=== PATIENT | male | born 1950 | race Caucasian/White ===

== ENCOUNTER 2019-12-28 10:17 | Outpatient (CLI) | payer MEDICARE, SELFPAY ==
--- NOTE | 2019-12-28 11:30 | NEURO_ITS ---
Patient Number: [id number] Impression: # Complains of generalized aches and numbness. Patient on peritoneal dialysis at home. 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 # Subtle early left Carpal Tunnel Syndrome. # Ulnar neuropathy around the elbows. # Normal needle/EMG exam. Nerve Conduction Studies Anti Sensory Summary Table Stim Site NR Peak (ms) P-T Amp (?V) Site1 Site2 Delta-P (ms) Dist (cm) Rhys (m/s) Left Median Anti Sensory (2-3nd Digit) Wrist 4.4 18.9 Wrist 2-3nd Digit 4.4 14.0 32 Wrist 4.4 27.0 Wrist 2-3nd Digit 4.4 14.0 32 Right Median Anti Sensory (2-3nd Digit) Wrist 4.3 7.8 Wrist 2-3nd Digit 4.3 14.0 33 Wrist 4.2 11.9 Wrist 2-3nd Digit 4.3 14.0 33 Left Radial Anti Sensory (Base 1st Digit) Wrist 2.5 5.6 Wrist Base 1st Digit 2.5 0.0 Right Radial Anti Sensory (Base 1st Digit) Wrist 3.3 2.8 Wrist Base 1st Digit 3.3 0.0 Left Ulnar Anti Sensory (5th Digit) Wrist 3.5 26.8 Wrist 5th Digit 3.5 14.0 40 Right Ulnar Anti Sensory (5th Digit) Wrist 3.7 17.1 Wrist 5th Digit 3.7 14.0 38 Motor Summary Table Stim Site NR Onset (ms) O-P Amp (mV) Site1 Site2 Delta-0 (ms) Dist (cm) Rhys (m/s) Left Median Motor (Abd Poll Brev) Wrist 4.7 1.5 Elbow Wrist 5.9 30.0 51 Elbow 10.6 1.1 Right Median Motor (Abd Poll Brev) Wrist 4.6 3.4 Elbow Wrist 6.8 31.0 46 Elbow 11.4 1.7 Left Ulnar Motor (Abd Dig Minimi) Wrist 3.6 4.8 A Elbow Wrist 7.1 31.0 44 A Elbow 10.7 3.6 B Elbow Wrist 4.7 24.0 51 B Elbow 8.3 4.0 Right Ulnar Motor (Abd Dig Minimi) Wrist 3.7 5.5 A Elbow Wrist 6.5 30.0 46 A Elbow 10.2 4.3 B Elbow Wrist 5.4 23.0 43 B Elbow 9.1 3.8 F Wave Studies NR F-Lat (ms) L-R F-Lat (ms) Left Median (Mrkrs) (Abd Poll Brev) 28.58 1.05 Right Median (Mrkrs) (Abd Poll Brev) 29.63 1.05 Left Ulnar (Mrkrs) (Abd Dig Min) 30.20 0.36 Right Ulnar (Mrkrs) (Abd Dig Min) 29.84 0.36 EMG Side Muscle Nerve Root Ins Act Fibs Amp Dur Recrt Comment Right 1stDorInt Ulnar C8-T1 Nml Nml Nml Nml Nml Right Ext Indicis Radial (Post Int) C7-8 Nml Nml Nml Nml Nml Right Ext Digitorum Radial (Post Int) C7-8 Nml Nml Nml Nml Nml Right BrachioRad Radial C5-6 Nml Nml Nml Nml Nml Right PronatorTeres Median C6-7 Nml Nml Nml Nml Nml Right Abd Poll Brev Median C8-T1 Nml Nml Nml Nml Nml Left 1stDorInt Ulnar C8-T1 Nml Nml Nml Nml Nml Left Ext Indicis Radial (Post Int) C7-8 Nml Nml Nml Nml Nml Left Ext Digitorum Radial (Post Int) C7-8 Nml Nml Nml Nml Nml Left BrachioRad Radial C5-6 Nml Nml Nml Nml Nml Left PronatorTeres Median C6-7 Nml Nml Nml Nml Nml Left Abd Poll Brev Median C8-T1 Nml Nml Nml Nml Nml Right ABD Dig Min Ulnar C8-T1 Nml Nml Nml Nml Nml Left ABD Dig Min Ulnar C8-T1 Nml Nml Nml Nml Nml MTDD
== END 2019-12-28 10:18 | disposition home or self-care (01) ==
PROVIDERS: PCP Internal Medicine; Visit Provider Internal Medicine
DX: G56.00 Carpal tunnel syndrome, unspecified upper limb (principal); G56.02 Carpal tunnel syndrome, left upper limb; G62.9 Polyneuropathy, unspecified; G56.23 Lesion of ulnar nerve, bilateral upper limbs
CPT/HCPCS: 95886; 95911

== ENCOUNTER 2020-08-17 15:29 | Outpatient (CLI) | payer MEDICARE, SELFPAY ==
[2020-08-17 16:03] LABS: Anion Gap 6 mmol/L (8-16); Blood Urea Nitrogen 40 mg/dL (9-20); Calcium 9.8 mg/dL (8.4-10.2); Carbon Dioxide 33 mmol/L (22-30); Chloride 100 mmol/L (98-107); Estimated Glomerular Filt Rate 9; Glucose 124 mg/dL (75-110); Potassium 3.5 mmol/L (3.4-5.0); Sodium 139 mmol/L (137-145)
[2020-08-17 16:34] LABS: Prostate Specific Antigen 1.5 ng/mL (< OR = 4.0)
[2020-08-17 18:00] LABS: Free T4 Free Thyroxine 0.79 ng/mL (0.78-2.19)
== END 2020-08-17 15:30 | disposition home or self-care (01) ==
LOC: ANHLAB 15:31
PROVIDERS: PCP Internal Medicine; Visit Provider Internal Medicine
DX: R79.89 Other specified abnormal findings of blood chemistry (principal); Z79.899 Other long term (current) drug therapy; I10 Essential (primary) hypertension; Z12.5 Encounter for screening for malignant neoplasm of prostate
CPT/HCPCS: 36415; 80048; 83090; 84153; 84439; 84443; G0103

== ENCOUNTER 2020-09-28 16:14 | Outpatient (CLI) | payer MEDICARE, SELFPAY ==
--- NOTE | ~2020-09-28 | XR_ITS ---
XR wrist LT min 3V DATE: 09/28/2020 16:42 INDICATION: Bilateral wrist pain TECHNIQUE: 4 views COMPARISON: None FINDINGS: There is prominent arterial calcification at the forearm and wrist. Moderate osteopenia. No recent fracture or dislocation. No periosteal reaction or bone destruction. No chondrocalcinosis o r erosive change is evident. IMPRESSION: Moderate osteopenia Arterial calcifications Reviewed, dictated and finalized at location B. 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
--- NOTE | ~2020-09-28 | XR_ITS ---
EXAMINATION: XR wrist RT min 3V INDICATION: Osteoarthritis TECHNIQUE: Four views of the right wrist are obtained. COMPARISON: None available FINDINGS: There is advanced osteoarthritis at the radiocarpal joint, triscaphe joint, and the first c arpometacarpal joint. There is widening of the scapholunate interval with proximal migration of the c apitate. No fracture is identified. Calcified atherosclerosis is noted. There appears to be some rota ry subluxation of the scaphoid. IMPRESSION: 1. 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 Reviewed, dictated and finalized at location A. 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
== END 2020-09-28 16:15 | disposition home or self-care (01) ==
PROVIDERS: PCP Internal Medicine; Visit Provider Plastic Surgery
DX: M19.031 Primary osteoarthritis, right wrist (principal); M19.032 Primary osteoarthritis, left wrist
CPT/HCPCS: 73110

== ENCOUNTER 2020-10-25 13:02 | Outpatient (CLI) | payer OTHER, SELFPAY ==
[2020-10-29 10:51] LABS: Kit Draw Collected
== END 2020-10-25 13:03 | disposition home or self-care (01) ==
PROVIDERS: PCP Internal Medicine; Visit Provider Transplant Surgery
DX: N18.6 End stage renal disease (principal)
CPT/HCPCS: 36415

== ENCOUNTER 2021-03-11 13:23 | Outpatient (CLI) | payer MEDICARE, SELFPAY ==
[2021-03-11 13:58] LABS: Basophils Absolute Auto 0.1 K/mm3 (0.0-0.1); Eosinophils Absolute Auto 0.2 K/mm3 (0-0.3); Eosinophils Percent Auto 3.2 % (0-4.4); Hematocrit 36.2 % (42.0-52.0); Hemoglobin 11.8 g/dL (14.0-18.0); Immature Granulocyte Absolute 0.03 K/mm3 (0.00-0.031); Immature Granulocyte Percent A 0.4 % (0-0.5); Lymphocytes Absolute Auto 1.25 K/mm3 (0.9-3.2); Lymphocytes Percent Auto 18.1 % (18.3-44.2); Mean Corpuscular HGB Conc 32.6 g/dl (32-36); Mean Corpuscular Hemoglobin 33.7 pg (26-34); Mean Corpuscular Volume 103.4 fl (80-100); Mean Platelet Volume 9.6 fl (7.4-10.4); Monocytes Absolute Auto 0.5 K/mm3 (0.1-0.6); Neutrophils Absolute Auto 4.8 K/mm3 (1.3-6.7); Neutrophils Percent Auto 70.3 % (45.5-73.1); Platelet Count Result 263 k/mm3 (150-375); Red Cell Distribution Width 13.5 % (11.5-14.5); White Blood Count 6.9 K/mm3 (4.5-10.0)
[2021-03-11 15:33] LABS: Alanine Aminotransferase 18 U/L (4-50); Albumin Level 3.8 g/dL (3.5-5.1); Alkaline Phosphatase 104 U/L (38-126); Anion Gap 8 mmol/L (8-16); Aspartate Amino Transferase 23 U/L (17-59); Bilirubin,Total 0.5 mg/dL (0.2-1.3); Blood Urea Nitrogen 35 mg/dL (9-20); Calcium 9.8 mg/dL (8.4-10.2); Carbon Dioxide 30 mmol/L (22-30); Chloride 100 mmol/L (98-107); Cholesterol 196 mg/dL (0-200); Estimated Glomerular Filt Rate 8; Glucose 103 mg/dL (65-110); HDL Direct 53 mg/dL; Sodium 138 mmol/L (137-145); Triglycerides 107 mg/dL (<150)
[2021-03-11 15:34] LABS: LDL Cholesterol Direct 91 mg/dL
[2021-03-11 15:39] LABS: Potassium 4.4 mmol/L (3.4-5.0)
[2021-03-11 15:59] LABS: Free T4 Free Thyroxine 0.74 ng/mL (0.78-2.19)
== END 2021-03-11 13:24 | disposition home or self-care (01) ==
PROVIDERS: PCP Internal Medicine; Visit Provider Internal Medicine
DX: E78.2 Mixed hyperlipidemia (principal); Z79.899 Other long term (current) drug therapy; I10 Essential (primary) hypertension
CPT/HCPCS: 36415; 80053; 80061; 83036; 84439; 84443; 85025

== ENCOUNTER 2021-04-11 09:20 | Outpatient (CLI) | payer MEDICARE, SELFPAY ==
[2021-04-11 09:45] LABS: INR 1.8; Prothrombin Time 20.2 Seconds (11.1-14.7)
== END 2021-04-11 09:21 | disposition home or self-care (01) ==
LOC: ANHLAB 09:22
PROVIDERS: PCP Internal Medicine; Visit Provider Internal Medicine
DX: I48.91 Unspecified atrial fibrillation (principal)
CPT/HCPCS: 36415; 85610

== ENCOUNTER 2021-04-16 08:40 | Emergency (ER) | payer MEDICARE, SELFPAY ==
[2021-04-16] VITALS (13 sets, daily range): BP systolic 80–145; BP diastolic 36–96; PULSE 69–92; RESP 15–19; TEMP 36.2–36.6; O2SAT 95–100
--- NOTE | ~2021-04-16 | CT_ITS ---
EXAMINATION: CT abdomen pelvis wo con EXAM DATE: 04/16/2021 10:04 INDICATION: Abdominal pain. Skin cancer. TECHNIQUE: Spiral CT of the abdomen and pelvis was performed without contrast. Axial, coronal and s agittal images of the abdomen and pelvis were reviewed. The dose-length product (DLP) for this exami nation was 1149.51 mGy-cm. The exposure was tailored according to patient size (auto mA exposure con trol), and iterative reconstruction (ASIR) was used as additional dose reduction technique. There is no prior study for comparison. FINDINGS: There is peritoneal dialysis catheter, likely accounting for the free intraperitoneal fluid and gas. There is significant bilateral renal atrophy. There is hyperdense region surrounding the left kidney consistent with a large subcapsular hematoma. There is extracapsular extension of this into the retro peritoneum, and extending into the pelvis. There is a focal region which could be a hemorrhagic mass measuring about 6 cm. There are other hyperdense right renal lesions visualized statistically most li gerry hemorrhagic cysts, but indeterminate. The liver, spleen, adrenal glands and pancreas are unremarkable. Gallbladder is unremarkable. No bi liary obstruction. Mild prostatomegaly. The bladder is unremarkable. There is no retroperitoneal or pelvic lymphadenopathy. There is moderate scattered arteriosclerotic disease. There are no findings to suggest appendicitis. Mild sigmoid diverticulosis. The stomach and small bow el are unremarkable. There is expected amount of colonic stool. The heart is normal in size. The re are no pericardial or pleural effusions. The lung bases are unremarkable. There are no osteoblas tic or osteolytic lesions identified. There is a right hip arthroplasty. Right nipple was imaged, h as soft tissue density deep to it probably mild gynecomastia. IMPRESSION: 1. Large left subcapsular hematoma, could be from hemorrhagic left renal mass. Extracapsular extensi on. Clinical correlation for evidence of page kidney. 2. Indeterminate right renal lesions statistically most likely hemorrhagic cysts. 3. Free intraperitoneal fluid and gas likely from dialysis. 4. Mild sigmoid diverticulosis. 5. Mild prostatomegaly. Reviewed, dictated and finalized at location A. IMPRESSION: 1. Large left subcapsular hematoma, could be from hemorrhagic left renal mass. Extracapsular extension. Clinical correlation for evidence of page kidney. 2. Indeterminate right renal lesions statistically most likely hemorrhagic cys ts. 3. Free intraperitoneal fluid and gas likely from dialysis. 4. Mild sigmoid diverticulosis. 5. Mild prostatomegaly.
[2021-04-16 09:21] LABS: Basophils Absolute Auto 0.1 K/mm3 (0.0-0.1); Basophils Percent Auto 0.6 % (0.2-1.2); Eosinophils Absolute Auto 0.3 K/mm3 (0-0.3); Eosinophils Percent Auto 1.3 % (0-4.4); Hematocrit 29.8 % (42.0-52.0); Hemoglobin 9.7 g/dL (14.0-18.0); Immature Granulocyte Absolute 0.17 K/mm3 (0.00-0.031); Immature Granulocyte Percent A 0.9 % (0-0.5); Lymphocytes Absolute Auto 1.72 K/mm3 (0.9-3.2); Lymphocytes Percent Auto 9.2 % (18.3-44.2); Mean Corpuscular HGB Conc 32.6 g/dl (32-36); Mean Corpuscular Hemoglobin 33.6 pg (26-34); Mean Corpuscular Volume 103.1 fl (80-100); Mean Platelet Volume 9.5 fl (7.4-10.4); Monocytes Absolute Auto 0.8 K/mm3 (0.1-0.6); Monocytes Percent Auto 4.3 % (2.6-8.5); Neutrophils Absolute Auto 15.7 K/mm3 (1.3-6.7); Neutrophils Percent Auto 83.7 % (45.5-73.1); Platelet Count Result 333 k/mm3 (150-375); Red Blood Count 2.89 M/mm3 (4.6-6.20); Red Cell Distribution Width 14.6 % (11.5-14.5); White Blood Count 18.7 K/mm3 (4.5-10.0)
--- NOTE | 2021-04-16 09:30 | PC.NURSE ---
patient asked for urine sample at this time, patient unable to provide urine and declines straight cath.
[2021-04-16] MEDS: MORPHINE SULFATE (*CRX) 2 MG/ML INJ IV PUSH (09:33)
--- NOTE | 2021-04-16 09:42 | ED.GENADULT ---
HPI - General Adult General Chief complaint: Abdominal Pain Stated complaint: L SIDED ABD PAIN Time Seen by Provider: 04/16/21 09:05 Source: patient Mode of arrival: ambulatory Limitations: no limitations History of Present Illness HPI narrative: Patient presents for evaluation of left-sided abdominal pain since 0600 this morning. He indicates he woke from sleep with the pain. Pain is constant, sharp, 9 out of 10 in severity. States pain does radiate into the left flank. He has experienced nausea and vomiting. No fever, chills, chest pain, shortness of breath. However, deep inspiration makes pain worse. No change in bowel pattern. Last bowel movement this morning around 0600, without the presence of blood or mucus in the stool. He is on peritoneal dialysis 3 times a day. He was recently admitted at [facility] last week after syncopal episode. He was found to have new onset atrial fibrillation. He was started on Coumadin and is currently taking 5 mg daily. No history of abdominal surgeries. Denies urinary symptoms. He still does produce urine. He has not taken any medication to assist with his pain. He recently changed to a new dialysate. No additional complaints or concerns. Related Data Home Medications Medication Instructions Recorded Confirmed amlodipine 10 mg tablet 10 mg PO DAILY 10/07/19 03/01/21 clopidogrel 75 mg tablet 75 mg PO DAILY 10/07/19 03/01/21 irbesartan 300 mg tablet 300 mg PO DAILY 10/07/19 03/01/21 furosemide 40 mg tablet 40 mg PO QAM PRN 02/28/21 03/01/21 Allergies Allergy/AdvReac Type Severity Reaction Status Date / Time No Known Allergies Allergy Unknown Verified 02/28/21 13:37 Review of Systems Review of Systems: CONSTITUTIONAL: Denies fever, chills, or sweats. EYES: Denies visual changes, redness, or discharge. ENT: Denies rhinorrhea, congestion, sore throat, or otalgia. CARDIOVASCULAR: Denies chest pain, palpitations, or edema. RESPIRATORY: Denies cough or dyspnea. GASTROINTESTINAL: Reports left-sided abdominal pain with radiation into the flank. Reports nausea and vomiting. Denies diarrhea. GENITOURINARY: Denies dysuria or hematuria. SKIN: Denies rash or itching. MUSCULOSKELETAL: Denies back pain, joint pain, or myalgia. NEUROLOGIC: Denies headache, numbness, dizziness, or weakness. PSYCHIATRIC: Denies anxiety or depression. [facility] Past Medical History Medical History A-fib Abnormal thyroid function test Anxiety with depression ASHD (arteriosclerotic heart disease) Benign essential hypertension BMI 33.0-33.9,adult BMI 35.0-35.9,adult CTS (carpal tunnel syndrome) DJD (degenerative joint disease) Encounter for routine adult health examination without abnormal findings Encounter for special screening examination for neoplasm of prostate Erectile dysfunction ESRD (end stage renal disease) Hx of colonic polyps Hx of melanoma of skin Hyperlipidemia Impacted cerumen of left ear Lack of appetite On group home drug therapy JUDITH (obstructive sleep apnea) Family History Family History Father Cerebrovascular accident Mother Family history of lung cancer Social History Social History Smoking status: Never smoker Alcohol intake: current Exam Narrative: GENERAL: Well-appearing, well-nourished, and in no acute distress. HEAD: Normocephalic, atraumatic. EYES: PERRLA and EOMI. ENT: Nares clear, no rhinorrhea or epistaxis. Mucous membranes moist. Oropharynx without tonsillar hypertrophy exudate or other lesions. Bilateral TMs pearly hopper nonbulging NECK: Supple. No adenopathy or masses. No carotid bruits or JVD CHEST: Clear to auscultation. No respiratory distress. No wheezes rales or rhonchi HEART: Regular rate and rhythm. No murmur heard. Normal peripheral pulses. ABDOMEN: Soft, le
--- NOTE | 2021-04-16 09:45 | ECG_ITS ---
Measurements Intervals [place] Rate: 77 P: [place]: 0 QRS: -5 QRSD: 82 T: 58 QT: 412 QTc: 467 Interpretive Statements ATRIAL FIBRILLATION FREQUENT VENTRICULAR PREMATURE COMPLEXES DELAYED PRECORDIAL R/S TRANSITION ABNORMAL ECG Electronically Signed On 04-16-2021 10:13:03 CDT by Jude Tsang D.O.
[2021-04-16 09:50] LABS: Alanine Aminotransferase 17 U/L (4-50); Albumin Level 3.1 g/dL (3.5-5.1); Alkaline Phosphatase 87 U/L (38-126); Anion Gap 7 mmol/L (8-16); Aspartate Amino Transferase 27 U/L (17-59); Bilirubin,Total 0.4 mg/dL (0.2-1.3); Blood Urea Nitrogen 38 mg/dL (9-20); Calcium 9.4 mg/dL (8.4-10.2); Carbon Dioxide 27 mmol/L (22-30); Chloride 100 mmol/L (98-107); Estimated CRCL calculation 10 ml/min; Estimated Glomerular Filt Rate 7; Glucose 185 mg/dL (65-110); Lipase 176 U/L (23-300); Potassium 3.7 mmol/L (3.4-5.0); Sodium 134 mmol/L (137-145)
[2021-04-16] MEDS: fentaNYL CITRATE INJ (*CRX) 100 MCG/2 ML VIAL 50 MCG IV PUSH (10:37)
[2021-04-16 10:42] LABS: Prothrombin Time 48.9 Seconds (11.1-14.7)
[2021-04-16 10:43] LABS: Partial Thromboplastin Time 62.6 SECONDS (22.3-36.8)
[2021-04-16 10:50] LABS: INR 5.6
[2021-04-16 11:06] LABS: Lactic Acid Reflex 2.4 mmol/L (0.7-2.1)
[2021-04-16 11:21] LABS: Troponin I 0.086 ng/mL (0.000-0.034)
[2021-04-16] MEDS: PHYTONADIONE ADULT INJ 5 MG in DEXTROSE 5% IN WATER 50 ML 100 MG IVPB (11:41)
[2021-04-16 11:43] LABS: Add Urine Microscopic? YES; Appearance Urine Clear (Clear); Bilirubin Urine Negative (Negative); Blood Urine Negative (Negative); Color Urine Yellow (Yellow); Glucose Urine UA 1+ mg/dL (Negative); Ketones Urine Negative (Negative); Leukocyte Esterase Ur Negative LEU/UL (Negative); Nitrate Urine Negative (Negative); Protein Urine 2+ mg/dL (Negative); RBC Urine 0-2 /hpf (0-2); Urobilinogen Urine Negative mg/dL (<2.0)
[2021-04-16 12:58] LABS: Troponin I 0.069 ng/mL (0.000-0.034)
[2021-04-16 13:27] LABS: Reflex Lactic Acid Yes or No Add Lactic
--- NOTE | 2021-04-16 13:36 | PC.NURSE ---
Patient accepting at [facility] for transfer, bed not open at this time.
[2021-04-16] MEDS: SODIUM CHLORIDE 0.9% IV 250 ML 30 ML IV CONT (14:23)
--- NOTE | 2021-04-16 14:26 | PC.NURSE ---
[facility] accepted transfer to [facility] ETA [id number] Trip# [id number]
[2021-04-16] MEDS: TUBING, BLOOD PLUM PUMP TUBING 1 EACH XX ×2 (14:53→17:07)
[2021-04-16 15:18] LABS: Lactic Acid 4.3 mmol/L (0.7-2.1)
[2021-04-16] MEDS: fentaNYL CITRATE INJ (*CRX) 100 MCG/2 ML VIAL 75 MCG IV PUSH (16:23)
[2021-04-16 16:48] LABS: EDCOVIDSCREEN Negative (Negative)
--- NOTE | 2021-04-16 17:10 | PC.NURSE ---
new eta for trip#[id number]
[2021-04-16] MEDS: HYDROmorphone HCL INJ (*CRX) 1 MG/ML SYR 0.5 MG IV PUSH (18:02)
== END 2021-04-16 18:36 | disposition short-term general hospital (02) ==
PROVIDERS: Emergency Medicine; Emergency Provider Nurse Practitioner; PCP Internal Medicine
DX: S30.1XXA Contusion of abdominal wall, initial encounter (principal); R79.1 Abnormal coagulation profile; I48.91 Unspecified atrial fibrillation; F41.8 Other specified anxiety disorders; I25.10 Atherosclerotic heart disease of native coronary artery without angina pectoris; I12.0 Hypertensive chronic kidney disease with stage 5 chronic kidney disease or end stage renal disease; N18.6 End stage renal disease; E78.5 Hyperlipidemia, unspecified; Z20.822 Contact with and (suspected) exposure to COVID-19; Y33.XXXA Other specified events, undetermined intent, initial encounter; G47.33 Obstructive sleep apnea (adult) (pediatric); Z79.899 Other long term (current) drug therapy; Z99.2 Dependence on renal dialysis
CPT/HCPCS: 36415; 36430; 51701; 74176; 80053; 81001; 83605; 83690; 84484; 85025; 85610; 85730; 86900; 86901; 87426; 93005; 96361; 96365; 96375; 96376; 99285; C9803; J1170; J2270; J3010; J3430; J7050; P9017

== ENCOUNTER 2021-04-26 17:41 | Outpatient (NON) | payer MEDICARE, SELFPAY ==
[2021-04-26 18:00] LABS: Add Urine Microscopic? YES; Appearance Urine Clear (Clear); Bacteria Urine Trace /hpf; Bilirubin Urine Negative (Negative); Blood Urine 1+ (Negative); Color Urine Yellow (Yellow); Glucose Urine UA 1+ mg/dL (Negative); Ketones Urine Negative (Negative); Leukocyte Esterase Ur 3+ LEU/UL (Negative); Nitrate Urine Negative (Negative); Protein Urine 2+ mg/dL (Negative); Squamous Epithelial Cell Urine Rare /hpf (Few); Urobilinogen Urine Negative mg/dL (<2.0); WBC Urine >75 /hpf
[2021-04-26 18:16] LABS: Specific Grav Ur 1.032 (1.001-1.035)
== END 2021-04-26 17:42 | disposition home or self-care (01) ==
PROVIDERS: PCP Internal Medicine; Visit Provider Internal Medicine
DX: R30.0 Dysuria (principal)
CPT/HCPCS: 81001; 87077; 87086; 87088; 87186

== ENCOUNTER 2021-08-06 11:24 | Emergency (ER) | payer MEDICARE, SELFPAY ==
[2021-08-06 11:31] VITALS: BP 150/86; PULSE 71; RESP 16; TEMP 36.4; O2SAT 99
--- NOTE | 2021-08-06 11:35 | ED.SKABFB ---
HPI - Skin/Abscess/Foreign Bdy General Chief complaint: Skin/Abscess/Foreign Body Stated complaint: R LEG SWELLING Time Seen by Provider: 08/06/21 11:40 Source: patient and RN notes reviewed Mode of arrival: ambulatory Limitations: no limitations History of Present Illness HPI narrative: 70-year-old male with history of peritoneal dialysis, kidney failure, atrial fibrillation presents with concern for sores to his posterior right lower leg. He reports the sores are painless, have been there for several weeks and are slowly improving. Reports history of intermittent swelling in both legs. He denies any known injury or trauma. He denies fever, body aches, chills, sweats. Denies drainage from the area. Reports the scabbed areas have been larger and are smaller now and with less surrounding red MD complaint: lesion Related Data Home Medications Medication Instructions Recorded Confirmed amlodipine 10 mg tablet 10 mg PO DAILY 10/07/19 03/01/21 clopidogrel 75 mg tablet 75 mg PO DAILY 10/07/19 03/01/21 irbesartan 300 mg tablet 300 mg PO DAILY 10/07/19 03/01/21 furosemide 40 mg tablet 40 mg PO QAM PRN 02/28/21 03/01/21 Allergies Allergy/AdvReac Type Severity Reaction Status Date / Time No Known Allergies Allergy Unknown Verified 02/28/21 13:37 Review of Systems Review of Systems: CONSTITUTIONAL: Denies malaise, chills, sweats, or fever. CARDIOVASCULAR: Denies chest pain, palpitations, or edema. RESPIRATORY: Denies cough or dyspnea. SKIN: Reports sores to the posterior right lower leg above the ankle MUSCULOSKELETAL: Denies musculoskeletal pain or myalgia. NEUROLOGIC: Denies numbness, weakness All systems reviewed & are unremarkable except as noted in HPI and below [facility] Past Medical History Medical History (Updated 08/06/21 @ 11:47 by Arline Cardenas NP) A-fib Abnormal thyroid function test Anxiety with depression ASHD (arteriosclerotic heart disease) Benign essential hypertension BMI 33.0-33.9,adult BMI 35.0-35.9,adult CTS (carpal tunnel syndrome) DJD (degenerative joint disease) Dysuria Encounter for routine adult health examination without abnormal findings Encounter for special screening examination for neoplasm of prostate Erectile dysfunction ESRD (end stage renal disease) Generalized weakness Hx of colonic polyps Hx of melanoma of skin Hyperlipidemia Impacted cerumen of left ear Lack of appetite On custodial drug therapy JUDITH (obstructive sleep apnea) Family History Family History Father Cerebrovascular accident Mother Family history of lung cancer Social History Social History Smoking status: Never smoker Alcohol intake: current Comments At time of signature, agree with nursing past medical, surgical, social and family history. There is no relevant family history pertinent to the presenting complaint Exam Narrative: GENERAL: Well-appearing, well-nourished, and in no acute distress. HEAD: Normocephalic, atraumatic. EYES: PERRLA, conjunctivae clear CARDIAC: Bilateral nonpitting mild lower leg edema noted ENT: Mucous membranes moist. NECK: Supple. No lymphadenopathy CHEST: Clear to auscultation. No respiratory distress. HEART: Regular rate and rhythm. SKIN: Warm, dry. 2 scabbed areas noted above the right ankle approximately 1 cm and 1.5 cm in diameter surrounded by mild erythema without induration, warmth, edema or fluctuation consistent with stasis ulcers. NEURO: Alert and oriented x3. PSYCH: Normal mood and affect Course Course Emergency Course: Patient is aware of diagnosis, understands and agrees to treatment plan. Anticipatory guidance given. Patient agrees to follow-up as directed and is aware of reasons to seek care at the emergency department. Portions of this record may have been created with voice recognition software Vital Signs Vital signs: Vital Sig
== END 2021-08-06 11:53 | disposition home or self-care (01) ==
PROVIDERS: Emergency Provider Nurse Practitioner; PCP Internal Medicine
DX: I83.018 Varicose veins of right lower extremity with ulcer other part of lower leg (principal); L97.819 Non-pressure chronic ulcer of other part of right lower leg with unspecified severity; I48.91 Unspecified atrial fibrillation; I12.0 Hypertensive chronic kidney disease with stage 5 chronic kidney disease or end stage renal disease; N18.6 End stage renal disease; Z99.2 Dependence on renal dialysis; E78.5 Hyperlipidemia, unspecified; G47.33 Obstructive sleep apnea (adult) (pediatric); I25.10 Atherosclerotic heart disease of native coronary artery without angina pectoris; Z85.820 Personal history of malignant melanoma of skin
CPT/HCPCS: 99213; G0463

== ENCOUNTER 2021-08-19 14:04 | Outpatient (CLI) | payer MEDICARE, SELFPAY ==
[2021-08-19 14:37] LABS: Basophils Absolute Auto 0.1 K/mm3 (0.0-0.1); Eosinophils Absolute Auto 0.3 K/mm3 (0-0.3); Eosinophils Percent Auto 3.6 % (0-4.4); Hematocrit 31.7 % (42.0-52.0); Hemoglobin 10.5 g/dL (14.0-18.0); Immature Granulocyte Absolute 0.03 K/mm3 (0.00-0.031); Immature Granulocyte Percent A 0.4 % (0-0.5); Lymphocytes Absolute Auto 1.07 K/mm3 (0.9-3.2); Lymphocytes Percent Auto 15.5 % (18.3-44.2); Mean Corpuscular HGB Conc 33.1 g/dl (32-36); Mean Corpuscular Volume 105.7 fl (80-100); Mean Platelet Volume 9.6 fl (7.4-10.4); Monocytes Absolute Auto 0.6 K/mm3 (0.1-0.6); Monocytes Percent Auto 7.9 % (2.6-8.5); Neutrophils Percent Auto 71.6 % (45.5-73.1); Platelet Count Result 238 k/mm3 (150-375); Red Cell Distribution Width 15.2 % (11.5-14.5); White Blood Count 6.9 K/mm3 (4.5-10.0)
[2021-08-19 14:43] LABS: INR 1.5; Prothrombin Time 17.4 Seconds (11.1-14.7)
[2021-08-19 14:49] LABS: Alanine Aminotransferase 15 U/L (4-50); Albumin Level 3.7 g/dL (3.5-5.1); Alkaline Phosphatase 77 U/L (38-126); Anion Gap 10 mmol/L (8-16); Aspartate Amino Transferase 19 U/L (17-59); Bilirubin,Total 0.6 mg/dL (0.2-1.3); Blood Urea Nitrogen 37 mg/dL (9-20); Calcium 9.7 mg/dL (8.4-10.2); Carbon Dioxide 27 mmol/L (22-30); Chloride 94 mmol/L (98-107); Cholesterol 128 mg/dL (0-200); Estimated Glomerular Filt Rate 8; Glucose 103 mg/dL (65-110); HDL Direct 47 mg/dL; Potassium 4.4 mmol/L (3.4-5.0); Sodium 131 mmol/L (137-145); Triglycerides 88 mg/dL (<150)
[2021-08-19 14:50] LABS: Anion Gap 13 mmol/L (8-16); Blood Urea Nitrogen 38 mg/dL (9-20); Calcium 9.7 mg/dL (8.4-10.2); Carbon Dioxide 26 mmol/L (22-30); Chloride 93 mmol/L (98-107); Estimated Glomerular Filt Rate 8; Glucose 102 mg/dL (65-110); Potassium 4.4 mmol/L (3.4-5.0); Sodium 132 mmol/L (137-145)
[2021-08-19 14:59] LABS: LDL Cholesterol Direct 47 mg/dL
== END 2021-08-19 14:05 | disposition home or self-care (01) ==
PROVIDERS: PCP Internal Medicine; Referring Provider Internal Medicine Cardiovascular Disease; Visit Provider Internal Medicine
DX: E78.2 Mixed hyperlipidemia (principal); I10 Essential (primary) hypertension; Z79.899 Other long term (current) drug therapy; R94.6 Abnormal results of thyroid function studies; I48.19 Other persistent atrial fibrillation
CPT/HCPCS: 36415; 80048; 80053; 80061; 84439; 84443; 85025; 85610

== ENCOUNTER 2022-01-08 07:37 | Outpatient (RCR) | payer OTHER, MEDICARE, SELFPAY ==
[2022-01-08] VITALS (9 sets, daily range): BP systolic 117–147; BP diastolic 74–88; PULSE 50–53; RESP 13–14; TEMP 36.5–37.2; O2SAT 99–100
[2022-01-08 08:13] LABS: Hematocrit 22.5 % (42.0-52.0); Hemoglobin 7.4 g/dL (14.0-18.0)
[2022-01-08] MEDS: SODIUM CHLORIDE 0.9% IV 250 ML 30 ML IV CONT (09:21)
[2022-01-08 16:16] LABS: Hemoglobin 9.1 g/dL (14.0-18.0); Mean Corpuscular HGB Conc 32.5 g/dl (32-36); Mean Corpuscular Hemoglobin 32.6 pg (26-34); Mean Corpuscular Volume 100.4 fl (80-100); Mean Platelet Volume 8.9 fl (7.4-10.4); Platelet Count Result 218 k/mm3 (150-375); Red Blood Count 2.79 M/mm3 (4.6-6.20); Red Cell Distribution Width 16.5 % (11.5-14.5); White Blood Count 6.6 K/mm3 (4.5-10.0)
== END 2022-04-08 23:59 | disposition home or self-care (01) ==
LOC: ANHCPCTRAN 07:37
PROVIDERS: PCP Internal Medicine; Visit Provider Nurse Practitioner Family
DX: D64.9 Anemia, unspecified (principal)
CPT/HCPCS: 36415; 36430; 85014; 85018; 85027; 86850; 86900; 86901; 86920; J7050; P9016

== ENCOUNTER 2022-05-06 14:33 | Outpatient (CLI) | payer MEDICARE, SELFPAY ==
[2022-05-06 15:39] LABS: Hematocrit 26.8 % (42.0-52.0); Hemoglobin 8.5 g/dL (14.0-18.0); Mean Corpuscular HGB Conc 31.7 g/dl (32-36); Mean Corpuscular Hemoglobin 31.4 pg (26-34); Mean Corpuscular Volume 98.9 fl (80-100); Mean Platelet Volume 10.4 fl (7.4-10.4); Platelet Count Result 272 k/mm3 (150-375); Red Blood Count 2.71 M/mm3 (4.6-6.20); Red Cell Distribution Width 17.1 % (11.5-14.5); White Blood Count 11.3 K/mm3 (4.5-10.0)
[2022-05-06 16:05] LABS: Iron 41 ug/dL (49-181)
[2022-05-06 16:15] LABS: Percent Iron Saturation 22 % (20-50)
== END 2022-05-06 14:34 | disposition home or self-care (01) ==
LOC: ANHLAB 14:42
PROVIDERS: PCP Internal Medicine; Visit Provider Internal Medicine Nephrology
DX: D63.1 Anemia in chronic kidney disease (principal)
CPT/HCPCS: 36415; 82728; 83540; 83550; 85027

== ENCOUNTER 2022-05-13 14:01 | Outpatient (CLI) | payer MEDICARE, SELFPAY ==
--- NOTE | ~2022-05-13 | XR_ITS ---
XR chest 2V 05/13/2022 14:23 Indication: Cough and shortness of breath. Covid infection 3 weeks ago. Procedure: 2 view chest Comparison: 09/22/2011 Findings: Cardiomegaly. Small right pleural effusion. Dual-lumen central venous catheter tip in the S VC. No focal pneumonia, edema or pneumothorax. No acute osseous abnormality. Impression: 1: Small right pleural effusion. Reviewed, dictated and finalized at location A. Impression: 1: Small right pleural effusion.
== END 2022-05-13 14:02 | disposition home or self-care (01) ==
PROVIDERS: PCP Internal Medicine; Visit Provider Internal Medicine Nephrology
DX: R05.9 Cough, unspecified (principal); R06.02 Shortness of breath; J90 Pleural effusion, not elsewhere classified
CPT/HCPCS: 71046

== ENCOUNTER 2022-11-06 20:51 | Emergency (ER) | payer MEDICARE, SELFPAY ==
[2022-11-06 20:57] VITALS: BP 104/66; PULSE 58; RESP 18; TEMP 36.5; O2SAT 100
--- NOTE | 2022-11-06 21:41 | ED.RECABL ---
HPI - Recheck/Abnormal Lab/Rx General Chief Complaint: Recheck/Abnormal Lab/Rx Stated Complaint: BLood draw for dialysis count Time Seen by Provider: 11/06/22 21:31 History of Present Illness HPI narrative: Patient is a 72 year old male with a history of ESRD on dialysis here requesting EtOH level be drawn. According to patient, he was driving home from a restaurant and was pulled over by PD. 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 He contacted his quality control director who recommended he come to the ER to get an alcohol level drawn. He does admit to alcohol use tonight but he states he is not intoxicated. He denies any medical complaints and is only requesting his EtOH level be drawn. Related Data Home Medications Medication Instructions Recorded Confirmed amlodipine 10 mg tablet 10 mg PO DAILY 10/07/19 08/19/21 irbesartan 300 mg tablet 300 mg PO DAILY 10/07/19 08/19/21 furosemide 40 mg tablet 40 mg PO QAM PRN 02/28/21 08/19/21 apixaban 2.5 mg tablet (Eliquis) 2.5 mg PO BID 08/19/21 08/19/21 potassium chloride 20 mEq 20 meq PO DAILY 08/19/21 08/19/21 tablet,extended release(part/cryst) (Klor-Con M) zolpidem 10 mg tablet PO 08/19/21 08/19/21 Allergies Allergy/AdvReac Type Severity Reaction Status Date / Time No Known Allergies Allergy Verified 11/06/22 20:52 Review of Systems Review of Systems: All systems reviewed & are unremarkable except as noted in HPI and below PMFSH Past Medical History Medical History A-fib Abnormal thyroid function test Anxiety with depression ASHD (arteriosclerotic heart disease) Benign essential hypertension BMI 33.0-33.9,adult BMI 35.0-35.9,adult CTS (carpal tunnel syndrome) DJD (degenerative joint disease) TERRAZAS (dyspnea on exertion) Dysuria Encounter for routine adult health examination with abnormal findings Encounter for routine adult health examination without abnormal findings Encounter for special screening examination for neoplasm of prostate Erectile dysfunction ESRD (end stage renal disease) Generalized weakness Hx of colonic polyps Hx of melanoma of skin Hyperlipidemia Hypersomnolence Impacted cerumen of left ear Lack of appetite On care home drug therapy JUDITH (obstructive sleep apnea) JUDITH on CPAP Retroperitoneal bleed Family History Family History Father Cerebrovascular accident Mother Family history of lung cancer Social History Social History Smoking status: Never smoker Alcohol intake: current Exam Narrative: APPEARANCE: Well appearing, no pain in distress, well-nourished. Head: Normocephalic and atraumatic. EYES: PERRLA/EOMI, conjunctivae clear NOSE: No nasal drainage EARS: External ear normal in appearance THROAT: Oropharynx is clear. Mucous membranes are moist. NECK: Supple. No adenopathy, no masses. RESPIRATORY: Airway patent, respirations nonlabored. Clear to auscultation bilaterally, no rales, rhonchi, wheezing. CARDIOVASCULAR: Regular rate and rhythm without murmurs, rubs, or gallops. ABDOMINAL: Normoactive bowel sounds. Soft, nontender, nondistended. No rebound tenderness or guarding. MUSCULOSKELETAL: Extremities are warm and well-perfused. Moves all extremities well. No edema. NEURO: Normal speech. No focal neurologic deficits. SKIN: Skin is warm and dry. No rashes. PSYCHIATRIC: Normal affect/mood.. Course Vital Signs Vital signs: Vital Signs Temperature 97.7 F 11/06/22 20:57 Pulse Rate 58 L 11/06/22 20:57 Respiratory Rate 18 11/06/22 20:57 Blood Pressure 104/66 11/06/22 20:57 Pulse Oximetry 100 11/06/22 20:57 Oxygen Delivery Room Air 11/06/22 20:57 Temperature 97.7 F 11/06/22 20:57 Pulse Rate 58 L 11/06/22 20:57 Respir
[2022-11-06 22:07] LABS: Ethanol 122 mg/dL (<10)
== END 2022-11-06 22:25 | disposition home or self-care (01) ==
PROVIDERS: Emergency Provider Physician Assistant; PCP Family Medicine
DX: Z02.83 Encounter for blood-alcohol and blood-drug test (principal); I12.0 Hypertensive chronic kidney disease with stage 5 chronic kidney disease or end stage renal disease; N18.6 End stage renal disease; I48.91 Unspecified atrial fibrillation; I25.10 Atherosclerotic heart disease of native coronary artery without angina pectoris; F41.8 Other specified anxiety disorders; Z99.2 Dependence on renal dialysis; Z79.01 Long term (current) use of anticoagulants; Z79.899 Other long term (current) drug therapy
CPT/HCPCS: 36415; 80307; 99283

== ENCOUNTER 2023-02-23 08:30 | Outpatient (RCR) | payer MEDICARE, SELFPAY | END 2023-02-23 09:28 | disposition home or self-care (01) | LOC: ANHCPREHAB 08:30 | PROVIDERS: PCP Family Medicine | DX: Z95.1 Presence of aortocoronary bypass graft (principal); Z95.2 Presence of prosthetic heart valve | CPT/HCPCS: 93798 ==

== ENCOUNTER 2023-08-20 09:08 | Inpatient (IN) | payer MEDICARE, SELFPAY ==
[2023-08-20] VITALS (26 sets, daily range): BP systolic 95–127; BP diastolic 56–89; PULSE 59–73; RESP 9–20; TEMP 36.2–36.4; O2SAT 82–100; BMI 26.5
--- NOTE | ~2023-08-20 | CT_ITS ---
EXAMINATION: CT brain wo con DATE: 08/20/2023 21:36 INDICATION: Syncope TECHNIQUE: Computed tomography (CT) of the head was performed without intravenous contrast. Sagittal and coronal reconstructions were performed. The mA was adjusted according to patient size. Iterative reconstruction technique was employed. The dose-length product was 605.33 mGy-cm. COMPARISON: None FINDINGS: No acute intracranial hemorrhage, acute infarction or abnormal extra axial fluid collection. There is mild to moderate scattered white matter hypoattenuation consistent with chronic small vessel ischemi c disease. Symmetric prominence of the sulci consistent with mild to moderate age-appropriate diffuse cerebral volume loss. Ventricles are normal and symmetric. No mass/mass effect. Large expansile righ t maxillary dentigerous cyst with thin sclerotic margins which has ballooned into an expanded and rem odeled the mcclain of the posterior right maxillary sinus. Small mucous retention cyst in the left maxi llary sinus. The orbits and mastoid air cells are normal. IMPRESSION: 1. No acute intracranial process. 2. Age-related changes including mild to moderate diffuse volume loss and mild to moderate scattered white matter hypoattenuation consistent with chronic small vessel ischemic disease. Reviewed, dictated and finalized at location A. OSURGICAL PHYSICIAN ASSISTANT IMPRESSION: 1. No acute intracranial process. 2. Age-related changes including mild to moderate diffuse volume loss and mild to moderate scattered white matter hypoattenuation consistent with chronic smal l vessel ischemic disease.
--- NOTE | ~2023-08-20 | XR_ITS ---
XR chest 1V portable DATE: 08/20/2023 09:49 INDICATION: Syncope TECHNIQUE: Portable upright AP chest on 08/20/2023 at 0947 hours COMPARISON: 05/13/2022 AP and lateral chest FINDINGS: Status post sternotomy and cardiac valve replacement. Cardiomegaly. Aortic calcification. Electronic monitor device is noted in the inferior anterior left thoracic cavity. There is pulmonary vascular congestion and redistribution. There are bilateral primarily central and lower lung zone infiltrates suggesting pulmonary edema. Mild prominence of the minor fissure consiste nt with subpleural edema. Small right pleural effusion is suggested. Aortic arch calcification. IMPRESSION: Congestive heart failure, pulmonary edema Sternotomy and cardiac valve replacement since 05/13/2022 Reviewed, dictated and finalized at location L. MAINTAINER
--- NOTE | 2023-08-20 09:12 | ECG_ITS ---
Measurements Intervals [place] Rate: 62 P: [place]: 0 QRS: -42 QRSD: 180 T: 141 QT: 491 QTc: 502 Interpretive Statements ELECTRONIC VENTRICULAR PACEMAKER VENTRICULAR PREMATURE COMPLEX BASELINE ARTIFACT- I, II, AVR, AVL, AVF NO FURTHER INTERPRETATION IS POSSIBLE ATYPICAL ECG COMPARED TO ECG 04/16/2021 10:08:39 ELECTRONIC VENTRICULAR PACEMAKER NOW PRESENT Electronically Signed On 08-20-2023 9:51:49 VAN DRIVER HELPER by Jude Tsang D.O.
[2023-08-20 09:41] LABS: Basophils Absolute Auto 0.1 K/mm3 (0.0-0.1); Basophils Percent Auto 0.7 % (0.2-1.2); Eosinophils Absolute Auto 0.2 K/mm3 (0-0.3); Eosinophils Percent Auto 2.3 % (0-4.4); Hematocrit 27.7 % (42.0-52.0); Hemoglobin 8.5 g/dL (14.0-18.0); Immature Granulocyte Absolute 0.16 K/mm3 (0.00-0.031); Immature Granulocyte Percent A 1.9 % (0-0.5); Lymphocytes Absolute Auto 0.86 K/mm3 (0.9-3.2); Mean Corpuscular HGB Conc 30.7 g/dl (32-36); Mean Corpuscular Hemoglobin 36.2 pg (26-34); Mean Corpuscular Volume 117.9 fl (80-100); Mean Platelet Volume 9.7 fl (7.4-10.4); Monocytes Absolute Auto 0.8 K/mm3 (0.1-0.6); Monocytes Percent Auto 9.2 % (2.6-8.5); Neutrophils Absolute Auto 6.6 K/mm3 (1.3-6.7); Neutrophils Percent Auto 75.9 % (45.5-73.1); Platelet Count Result 273 k/mm3 (150-375); Red Blood Count 2.35 M/mm3 (4.6-6.20); Red Cell Distribution Width 15.9 % (11.5-14.5); White Blood Count 8.6 K/mm3 (4.5-10.0)
[2023-08-20 09:51] LABS: Alanine Aminotransferase 6 U/L (6-50); Albumin Level 3.5 g/dL (3.5-5.1); Alkaline Phosphatase 152 U/L (38-126); Anion Gap 12 mmol/L (8-16); Aspartate Amino Transferase 31 U/L (17-59); Bilirubin,Total 0.8 mg/dL (0.2-1.3); Blood Urea Nitrogen 33 mg/dL (9-20); Calcium 9.7 mg/dL (8.4-10.2); Carbon Dioxide 27 mmol/L (22-30); Chloride 95 mmol/L (98-107); Estimated CRCL calculation 14 ml/min; Estimated Glomerular Filt Rate 14; Glucose 103 mg/dL (65-110); Potassium 4.2 mmol/L (3.4-5.0); Sodium 134 mmol/L (137-145)
[2023-08-20 09:52] LABS: INR 1.4; Prothrombin Time 18.2 Seconds (11.1-14.7)
[2023-08-20 09:52] LABS: Platelet Estimate Adequate (Adequate)
[2023-08-20 09:53] LABS: Partial Thromboplastin Time 39.5 SECONDS (22.3-36.8)
[2023-08-20 09:53] LABS: Hypochromasia 1+ (NORMAL); Microcytosis 1+ (NORMAL); Schistocytes Rare (NORMAL)
[2023-08-20 10:03] LABS: Troponin I 0.044 ng/mL (0.000-0.034)
--- NOTE | 2023-08-20 12:45 | ED.SYNCOPE ---
HPI - Syncope General Chief Complaint: Syncope Stated Complaint: AMS Time Seen by Provider: 08/20/23 09:17 History of Present Illness HPI narrative: Patient is a 72-year-old male who presents ER after having multiple syncopal episodes while on dialysis. This occurred over 20 minutes. He denies any fevers or chills or sweats. No chest pain. He has orient x4 while here. Reports he is currently at [facility] where he is rehabbing since having his little toe amputated. No history of focal weakness. Related Data Home Medications Medication Instructions Recorded Confirmed amlodipine 10 mg tablet 10 mg PO DAILY 10/07/19 08/19/21 irbesartan 300 mg tablet 300 mg PO DAILY 10/07/19 08/19/21 furosemide 40 mg tablet 40 mg PO QAM PRN 02/28/21 08/19/21 apixaban 2.5 mg tablet (Eliquis) 2.5 mg PO BID 08/19/21 08/19/21 potassium chloride 20 mEq 20 meq PO DAILY 08/19/21 08/19/21 tablet,extended release(part/cryst) (Klor-Con M) zolpidem 10 mg tablet PO 08/19/21 08/19/21 Allergies Allergy/AdvReac Type Severity Reaction Status Date / Time [id number] Reductase Allergy Mild Unknown Verified 08/20/23 09:43 Inhibitor Review of Systems Review of Systems: All systems reviewed & are unremarkable except as noted in HPI and below Constitutional: Constitutional: Reports no additional constitutional complaints ENT: Reports system reviewed and no additional complaints, except as documented Cardiovascular: Cardiovascular: Reports no additional cardiovascular complaints Respiratory: Respiratory: Reports no additional respiratory complaints Neurologic: Reports syncope, Denies headache(s) and Denies focal weakness [facility] Past Medical History Medical History A-fib Abnormal thyroid function test Anxiety with depression ASHD (arteriosclerotic heart disease) Benign essential hypertension BMI 33.0-33.9,adult BMI 35.0-35.9,adult CTS (carpal tunnel syndrome) DJD (degenerative joint disease) TERRAZAS (dyspnea on exertion) Dysuria Encounter for routine adult health examination with abnormal findings Encounter for routine adult health examination without abnormal findings Encounter for special screening examination for neoplasm of prostate Erectile dysfunction ESRD (end stage renal disease) Generalized weakness Hx of colonic polyps Hx of melanoma of skin Hyperlipidemia Hypersomnolence Impacted cerumen of left ear Lack of appetite On shelter drug therapy JUDITH (obstructive sleep apnea) JUDITH on CPAP Retroperitoneal bleed Family History Family History (Updated 08/20/23 @ 18:33 by Stacie Wetzel, JIM) Father Cerebrovascular accident Mother Diabetes mellitus Family history of lung cancer Social History Social History Smoking status: Former smoker Smokeless tobacco user: chewing tobacco Alcohol intake: current Drinks per week: 2 Substance use: never Do You Feel Safe in your Home?: Yes Lack of Transportation: No Lack of Food: Never True Current Housing: I Have Housing Concerned About Future Housing: No Difficulty Paying Gas/Electric Bills: No Difficulty Paying for Meds: No Currently Unemployed: No Education: Master's Degree or Higher Difficulty w/ Childcare or Family Care: No Spiritual care concerns: No Exam Narrative: GENERAL: Well-appearing, well-nourished, and in no acute distress. HEAD: Normocephalic, atraumatic. ENT: Mucous membranes moist. NECK: Supple. CHEST: Clear to auscultation. No respiratory distress. HEART: Irregular irregular rate and rhythm. Normal peripheral pulses. ABDOMEN: Soft, nontender, nondistended. EXTREMITIES: Normal range of motion. No edema. SKIN: Warm, dry, no rash. NEURO: Alert and oriented x3. PSYCH: Normal mood and affect. Course Course Emergency Course: patient resting comfortably. Initial blood pressure was very l
--- NOTE | 2023-08-20 13:40 | PM.IMHP ---
H&P: HPI History of Present Illness Date/Time: 08/20/23 13:40 Chief Complaint: Mr. Wing is a 72-year-old male with PMHx: of AFib, with Watchman, and s/p: valve replacement, HTN, DJD, hyperlipidemia, JUDITH on CPAP, ESRD on hemodialysis TTS, presented to the emergency room via EMS from dialysis unit with complaints of ongoing syncopal episodes while on dialysis. Narrative: HPI is provided by patient and spouse by the bedside Patient states he has been currently doing rehabilitation at [facility] since his last hospitalization outside hospital. Patient states he has been on dialysis for the past 2 years, normally he goes to [facility] in [place], he has been absent for the last 5 weeks due to hospitalization for bacteremia and amputation digits on right foot. Patient states this was his 2nd treatment, he denies any excess fluid, reports he was at his target weight. Patient states he normally takes a nap while on dialysis, he reports staff stating that he was having seizure-like activities during dialysis, patient is unable to recall events, he is A&O x4, active with interview. He denies any fever chills nausea vomiting or chest pain at this time. ED workup revealed CXR reveals congestive heart failure, pulmonary edema, sternotomy and cardiac valve replacement since 05/13/2022, hemoglobin 8.5, anemia, white blood count 8.6 sodium 134, troponin is elevated 0.044, BP 118/66, pulse 62, respirations 20, 97.6 temperature, O2 sat 100% on room air Review of Systems Review of Systems: All systems reviewed & are unremarkable except as noted in HPI and below PMFSH Past Medical History Medical History A-fib Abnormal thyroid function test Anxiety with depression ASHD (arteriosclerotic heart disease) Benign essential hypertension BMI 33.0-33.9,adult BMI 35.0-35.9,adult CTS (carpal tunnel syndrome) DJD (degenerative joint disease) TERRAZAS (dyspnea on exertion) Dysuria Encounter for routine adult health examination with abnormal findings Encounter for routine adult health examination without abnormal findings Encounter for special screening examination for neoplasm of prostate Erectile dysfunction ESRD (end stage renal disease) Generalized weakness Hx of colonic polyps Hx of melanoma of skin Hyperlipidemia Hypersomnolence Impacted cerumen of left ear Lack of appetite [place] supervisor drug therapy JUDITH (obstructive sleep apnea) JUDITH on CPAP Retroperitoneal bleed Family History Family History Father Cerebrovascular accident Mother Diabetes mellitus Family history of lung cancer Social History Social History Smoking status: Former smoker Smokeless tobacco user: chewing tobacco Alcohol intake: current Drinks per week: 2 Substance use: never Do You Feel Safe in your Home?: Yes Lack of Transportation: No Lack of Food: Never True Current Housing: I Have Housing Concerned About Future Housing: No Difficulty Paying Gas/Electric Bills: No Difficulty Paying for Meds: No Currently Unemployed: No Education: Master's Degree or Higher Difficulty w/ Childcare or Family Care: No Spiritual care concerns: No Meds Home Medications and Allergies Home Medications Medication Instructions Recorded Confirmed Type amlodipine 10 mg tablet 10 mg PO DAILY 10/07/19 08/19/21 History irbesartan 300 mg tablet 300 mg PO DAILY 10/07/19 08/19/21 History alprostadil 1,000 mcg 1,000 mcg intra-urethral Q30-60M 02/28/21 08/19/21 Rx intra-urethral suppository ([place]) PRN erectile dysfunction #6 ea furosemide 40 mg tablet 40 mg PO QAM PRN 02/28/21 08/19/21 History rosuvastatin 10 mg tablet (Crestor) 10 mg PO DAILY #90 tabs 04/03/21 08/19/21 Rx compr.stocking,knee,long,large #4 ea 08/06/21 08/19/21 Rx apixaban 2.5 mg tablet (Eliquis) 2.5 mg PO BID 01
--- NOTE | 2023-08-20 18:07 | ADMGEN ---
This patient, Antonio Wing, was admitted to IMU Room 212-01. Patient/family oriented to hospital policies and general routines including ID bracelet, bed and alarms, visiting hours, pain management, procedures, bathroom and other care routines, personal items, smoking policy, room service/diet, and visiting hours. Information on how to activate the Rapid Response Team has been discussed. Patient/Family are encouraged to report perceived risks to care and to ask questions if they do not understand what they are told or what they should do.
[2023-08-20 22:07] LABS: Troponin I 0.037 ng/mL (0.000-0.034)
[2023-08-20 22:59] LABS: Hepatitis B Surface Anti Res Negative
[2023-08-21] VITALS (31 sets, daily range): BP systolic 100–121; BP diastolic 42–72; PULSE 59–85; RESP 16–20; TEMP 36.2–37; O2SAT 94–100
[2023-08-21 05:18] LABS: Basophils Absolute Auto 0.1 K/mm3 (0.0-0.1); Basophils Percent Auto 0.8 % (0.2-1.2); Eosinophils Absolute Auto 0.2 K/mm3 (0-0.3); Eosinophils Percent Auto 1.9 % (0-4.4); Hematocrit 23.8 % (42.0-52.0); Hemoglobin 7.3 g/dL (14.0-18.0); Immature Granulocyte Percent A 1.3 % (0-0.5); Lymphocytes Absolute Auto 0.75 K/mm3 (0.9-3.2); Lymphocytes Percent Auto 9.7 % (18.3-44.2); Mean Corpuscular HGB Conc 30.7 g/dl (32-36); Mean Corpuscular Hemoglobin 35.8 pg (26-34); Mean Corpuscular Volume 116.7 fl (80-100); Mean Platelet Volume 9.5 fl (7.4-10.4); Monocytes Absolute Auto 0.6 K/mm3 (0.1-0.6); Monocytes Percent Auto 8.2 % (2.6-8.5); Neutrophils Absolute Auto 6.1 K/mm3 (1.3-6.7); Neutrophils Percent Auto 78.1 % (45.5-73.1); Platelet Count Result 227 k/mm3 (150-375); Red Blood Count 2.04 M/mm3 (4.6-6.20); Red Cell Distribution Width 15.9 % (11.5-14.5); White Blood Count 7.8 K/mm3 (4.5-10.0)
[2023-08-21 05:39] LABS: Alanine Aminotransferase < 6 U/L (6-50); Alkaline Phosphatase 141 U/L (38-126); Anion Gap 10 mmol/L (8-16); Aspartate Amino Transferase 27 U/L (17-59); Bilirubin,Total 0.7 mg/dL (0.2-1.3); Blood Urea Nitrogen 38 mg/dL (9-20); Calcium 9.3 mg/dL (8.4-10.2); Carbon Dioxide 27 mmol/L (22-30); Chloride 95 mmol/L (98-107); Estimated CRCL calculation 11 ml/min; Estimated Glomerular Filt Rate 10; Glucose 79 mg/dL (65-110); Potassium 4.9 mmol/L (3.4-5.0); Sodium 132 mmol/L (137-145)
[2023-08-21 06:04] LABS: Hepatitis B Surface Antigen Negative (Negative)
[2023-08-21 07:01] LABS: Hypochromasia 1+ (NORMAL); Macrocytosis 1+ (NORMAL); Platelet Estimate Adequate (Adequate)
[2023-08-21 07:02] LABS: Schistocytes None Seen (NORMAL)
--- NOTE | 2023-08-21 09:20 | PM.IMPN ---
Progress Note: A&P Assessment and Plan (1) Syncope: Code(s): R55 - Syncope and collapse Status: Acute Assessment and Plan: -continue telemetry monitoring -check CT head without contrast pending -check echocardiogram in a.m. -check carotid duplex bilateral in a.m. -check orthostatic vitals -consult PT/OT eval and treat (2) ESRD on dialysis: Code(s): N18.6 - End stage renal disease; Z99.2 - Dependence on renal dialysis Status: Acute Assessment and Plan: -consult Nephrology appreciate recommendation and plan -renal diet -monitor I&O, patient states sometimes he is able to make urine once a week (3) JUDITH on CPAP: Code(s): G47.33 - Obstructive sleep apnea (adult) (pediatric); Z99.89 - Dependence on other enabling machines and devices Status: Acute (4) A-fib: Qualifiers: Atrial fibrillation type: unspecified Qualified Code(s): I48.91 - Unspecified atrial fibrillation Code(s): I48.91 - Unspecified atrial fibrillation Status: Acute Assessment and Plan: -continue home medication (5) Elevated troponin: Code(s): R79.89 - Other specified abnormal findings of blood chemistry Status: Acute Plan The patient is a 72-year-old male with a past medical history significant for end-stage renal disease on hemodialysis, atrial fibrillation with Watchman device, hypertension, hyperlipidemia, degenerative disc disease, obstructive sleep apnea on CPAP, and recent little toe amputation. He presents to the ER with seizure-like activity and hallucinations of wolves during dialysis, which he does not recall. Initial blood pressure was very low but has since normalized with IV fluids. He is admitted for observation. Chest x-ray indicates congestive heart failure and pulmonary edema. He has a history of sternotomy and cardiac valve replacements. Laboratory findings include troponin of 0.044 and hemoglobin of 8.5. EKG shows ventricular pacing without specific ST-T changes. CT head reveals no acute intracranial process but age-related changes with mild to moderate diffuse volume loss and mild to moderate scattered white matter hyperintensities consistent with chronic ischemic disease. ESRD on HD probably related to elevated troponin patient has history of elevated troponin, cardiology consulted suspected related to Coronary artery disease status post CABG 0 11/30 Bioprosthetic aortic valve replacement Hyper somnolence versus syncopal episodes intermittent hypertension hemodialysis periodically receives midodrine. He was also on gabapentin which was recently increased Syncope, suspect dialysis disequilibrium syndrome, or inta dialytic hemodynamic instability, CT head negative. Will stop gabapentin Recent bacteremia blood culture have been obtained and is currently pending. End-stage renal disease on hemodialysis JUDITH on CPAP history of atrial fibrillation status post Watchman vTE Prophylaxis: Apixaban DIET: Renal diet Anticipated hospital stay: > 2 days Code Status: Full code Subjective Date/time seen: 08/21/23 09:20 Interval history: Feels good. Was doing therapy at the nursing facility. Discuss with his over the phone Review of Systems Review of Systems: All systems reviewed & are unremarkable except as noted in HPI and below Exam Narrative: GENERAL: Well-appearing, well-nourished, and in no acute distress. HEAD: Normocephalic, atraumatic. ENT: Mucous membranes moist. NECK: Supple. CHEST: Clear to auscultation. No respiratory distress. HEART: Irregular irregular rate and rhythm. Normal peripheral pulses. ABDOMEN: Soft, nontender, nondistended. EXTREMITIES: Normal range of motion. No edema. SKIN: Warm, dry, no rash. Left foot to amputation ulceration left eldridge and left great toe noted NEURO: Alert and oriented x3. PSYCH: Normal mood and affect. Objective Data Vital Signs Vital Signs: Vital Signs - 24 hr 08/20/23 09:37 08/20/23
--- NOTE | 2023-08-21 09:57 | PM.CNCAR ---
Assessment and Plan Assessment and plan (1) Elevated troponin: Code(s): R79.89 - Other specified abnormal findings of blood chemistry Status: Acute Assessment and Plan: Flat troponin elevation with presentation without associated chest pain, shortness of breath or other symptoms concerning for acute coronary syndrome. This is very likely type 2 infarction in setting of known CAD, end-stage renal disease and reported relative hypotension. Patient is otherwise hemodynamically stable. Recent CABG outside hospital along with bioprosthetic AVR. No plans for invasive workup. Recent echocardiogram/transesophageal echocardiogram [facility]. Furthermore, review of chart reveals chronic elevation of troponins lower this hospitalization and previous. Continue aspirin 81 mg daily, clopidogrel 75 mg daily. Monitor for bleeding. No recommendations for repeat ischemic evaluation at this time. (2) Hypersomnolence: Code(s): G47.10 - Hypersomnia, unspecified Status: Acute Assessment and Plan: Reported questionable syncopal episodes, recommend patient and his report problem with intermittent hypotension during hemodialysis with these episodes. He receives midodrine periodically due to hypotension predominant during dialysis but also at home. Check orthostatic vital signs. These events are not secondary to acute coronary syndrome or bradyarrhythmia as patient has a micra pacemaker device and is intermittently paced. Patient is also severely anemic. (3) A-fib: Qualifiers: Atrial fibrillation type: unspecified Qualified Code(s): I48.91 - Unspecified atrial fibrillation Code(s): I48.91 - Unspecified atrial fibrillation Status: Acute Assessment and Plan: Paroxysmal, status post Watchman. Known indication for systemic anticoagulation from this perspective. (4) ESRD on dialysis: Code(s): N18.6 - End stage renal disease; Z99.2 - Dependence on renal dialysis Status: Acute Assessment and Plan: Management per Nephrology. Avoid intravascular volume depletion and relative hypotension. Midodrine with dialysis with concern as warranted. Given his history of MSSA bacteremia lower extremity wound he must be continued on his IV antibiotic regimen he was receiving prior to admission. Defer to primary service in this regard. Will repeat 2D echocardiogram as has been ordered. (5) JUDITH on CPAP: Code(s): G47.33 - Obstructive sleep apnea (adult) (pediatric); Z99.89 - Dependence on other enabling machines and devices Status: Acute Assessment and Plan: Continue CPAP for treatment of JUDITH. (6) History of left atrial appendage closure: Code(s): Z98.890 - Other specified postprocedural states Status: Acute Assessment and Plan: History of Watchman device. No indication for anticoagulation given history of atrial fibrillation. (7) CAD (coronary artery disease): Code(s): I25.10 - Atherosclerotic heart disease of [place] coronary artery without angina pectoris Status: Acute Assessment and Plan: As above, stable, status post CABG. (8) Status post aortic valve replacement with bioprosthetic valve: Code(s): Z95.3 - Presence of xenogenic heart valve Status: Acute Assessment and Plan: Patient history recent bacteremia for which 6 weeks IV antibiotics as recommended. He had a transesophageal echocardiogram with possible artifact that could not be readily count for and as such given his MSSA bacteremia and presence of bioprosthetic aortic valve prolonged antibiotics as advised. Furthermore, the recommendation was to repeat [place] as an outpatient toward the end of his treatment started in the end of July. Patient has been afebrile, no leukocytosis or new suggestion of active infection beyond what he is currently on IV antibiotics. He has a he systolic murmur in left sternal border and a faint systolic murmur in the right up
[2023-08-21] MEDS: SODIUM CHLORIDE 0.9% IV 1,000 ML 999 ML IV CONT (12:00)
--- NOTE | 2023-08-21 12:18 | PM.CNNEP ---
Assessment and Plan Assessment and plan (1) ESRD (end stage renal disease): Code(s): N18.6 - End stage renal disease Status: Acute Assessment and Plan: the patient has end-stage renal disease. He has been on dialysis for a long time. 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 The patient has been doing relatively well until recently when he got infection and was in the hospital and ended up at [facility] for recovery. Infection so he seems to be doing pretty well. Will go ahead and get him dialyzed today and do another treatment tomorrow. (2) Mental status alteration: Code(s): R41.82 - Altered mental status, unspecified Status: Acute Assessment and Plan: The patient had mental status changes in dialysis yesterday. This seems to have improved. In fact it was better by the time he was seen by the doctor in the emergency room. CT brain was negative. Electrolytes are all okay. Neurologic exam okay. No sign of infection. Antonio thinks that he combined his pain pills plus his muscle relaxer to closely together which led to his mental status changes. The seems to be a reasonable conclusion. However I will let the hospitalists finish evaluation of this. (3) Benign essential hypertension: Code(s): I10 - Essential (primary) hypertension Status: Acute Assessment and Plan: Blood pressure is under good control (4) Hyperlipidemia: Qualifiers: Hyperlipidemia type: mixed hyperlipidemia Qualified Code(s): E78.2 - Mixed hyperlipidemia Code(s): E78.5 - Hyperlipidemia, unspecified Status: Acute Assessment and Plan: he gets Crestor for this long-term (5) A-fib: Qualifiers: Atrial fibrillation type: unspecified Qualified Code(s): I48.91 - Unspecified atrial fibrillation Code(s): I48.91 - Unspecified atrial fibrillation Status: Acute Assessment and Plan: heart rate is good. He has a paced rhythm (6) JUDITH on CPAP: Code(s): G47.33 - Obstructive sleep apnea (adult) (pediatric); Z99.89 - Dependence on other enabling machines and devices Status: Acute Assessment and Plan: he uses the CPAP machine at home (7) Renal osteodystrophy: Code(s): N25.0 - Renal osteodystrophy Status: Acute Assessment and Plan: will check a phosphorus in the morning if he still here (8) Erythropoietin deficiency anemia: Code(s): D63.1 - Anemia in chronic kidney disease Status: Acute Assessment and Plan: hemoglobin is 7.3. He will get Epogen on dialysis History of Present Illness Reason for Consult Consult date: 08/21/23 Chief Complaint Chief complaint: esrd on dialysis,syncope History of Present Illness Narrative: Antonio is a very pleasant 72-year-old gentleman who has multiple medical problems including end-stage renal disease on hemodialysis 3 times a week, hypertension, peripheral vascular disease, atrial fibrillation, hyperlipidemia, sleep apnea who uses a CPAP machine, history of calciphylaxis, renal osteodystrophy, anemia of chronic kidney disease. The patient was recently in the hospital because of infection of his lower extremities. He was treated with antibiotics and discharged to [facility]. They continued antibiotics and also wound dressing changes as well as pain meds. The patient's went to dialysis on Thursday at [facility]. This dialysis went well. he went to dialysis and while he was running, he became more somnolent and started hallucinating. There were worried about recurrent infection so took him off the dialysis and sent him to the ER. In the ER he was evaluated. He was awake by the time he got there. He denies any fevers or chills. His leg pain is better. He denies any sinus issues, cough, belly issues. He
--- NOTE | 2023-08-21 13:53 | PCPTNOTE ---
attempted PT eval, pt at dialysis 13:44, per RN pt should return after 16:00
[2023-08-21] MEDS: ASPIRIN 81 MG ENTERIC TABLET PO (17:27)
[2023-08-21] MEDS: CLOPIDOGREL BISULFATE 75 MG TABLET PO (17:27)
[2023-08-21] MEDS: ROSUVASTATIN 5 MG TABLET PO (17:28)
[2023-08-21] MEDS: ESCITALOPRAM OXALATE 10 MG TABLET 20 MG PO (17:28)
[2023-08-21] MEDS: SILVER SULFADIAZINE 1% CR 400 GM JAR (*BKC) 1 APPLIC TOPICAL (17:28)
[2023-08-21] MEDS: GABAPENTIN 100 MG CAPSULE PO (17:29)
[2023-08-21] MEDS: HYDROcodone/acetaminophen (*CRX) 5-325 MG TABLET 1 TAB PO (19:55)
[2023-08-21] MEDS: ACETAMINOPHEN 325 MG TABLET 650 MG PO (23:52)
[2023-08-22] VITALS (28 sets, daily range): BP systolic 99–146; BP diastolic 35–80; PULSE 56–100; RESP 16–20; TEMP 36.2–37.4; O2SAT 98–100
[2023-08-22 04:41] LABS: Basophils Absolute Auto 0.1 K/mm3 (0.0-0.1); Basophils Percent Auto 0.6 % (0.2-1.2); Eosinophils Absolute Auto 0.1 K/mm3 (0-0.3); Eosinophils Percent Auto 1.3 % (0-4.4); Hematocrit 25.3 % (42.0-52.0); Hemoglobin 7.7 g/dL (14.0-18.0); Immature Granulocyte Absolute 0.05 K/mm3 (0.00-0.031); Immature Granulocyte Percent A 0.6 % (0-0.5); Immature Platelet Fraction Pct 3.1 % (0.9-11.2); Lymphocytes Absolute Auto 0.79 K/mm3 (0.9-3.2); Mean Corpuscular HGB Conc 30.4 g/dl (32-36); Mean Corpuscular Volume 118.2 fl (80-100); Mean Platelet Volume 10.2 fl (7.4-10.4); Monocytes Absolute Auto 0.8 K/mm3 (0.1-0.6); Monocytes Percent Auto 10.4 % (2.6-8.5); Neutrophils Absolute Auto 6.1 K/mm3 (1.3-6.7); Neutrophils Percent Auto 77.1 % (45.5-73.1); Platelet Count Result 247 k/mm3 (150-375); Red Blood Count 2.14 M/mm3 (4.6-6.20); Red Cell Distribution Width 16.3 % (11.5-14.5); White Blood Count 7.9 K/mm3 (4.5-10.0)
[2023-08-22 04:53] LABS: Albumin Level 3.3 g/dL (3.5-5.1); Alkaline Phosphatase 146 U/L (38-126); Anion Gap 9 mmol/L (8-16); Aspartate Amino Transferase 25 U/L (17-59); Bilirubin,Total 0.7 mg/dL (0.2-1.3); Blood Urea Nitrogen 22 mg/dL (9-20); Calcium 9.3 mg/dL (8.4-10.2); Carbon Dioxide 28 mmol/L (22-30); Chloride 97 mmol/L (98-107); Estimated CRCL calculation 17 ml/min; Estimated Glomerular Filt Rate 16; Glucose 79 mg/dL (65-110); Potassium 4.2 mmol/L (3.4-5.0); Sodium 134 mmol/L (137-145)
[2023-08-22] MEDS: ACETAMINOPHEN 325 MG TABLET 650 MG PO (05:36)
[2023-08-22] MEDS: LEVOTHYROXINE SODIUM 50 MCG TABLET PO (05:39)
[2023-08-22 07:54] LABS: Alanine Aminotransferase < 6 U/L (6-50)
[2023-08-22] MEDS: CLOPIDOGREL BISULFATE 75 MG TABLET PO (09:11)
[2023-08-22] MEDS: ASPIRIN 81 MG ENTERIC TABLET PO (09:11)
[2023-08-22] MEDS: ROSUVASTATIN 5 MG TABLET PO (09:11)
[2023-08-22] MEDS: ESCITALOPRAM OXALATE 10 MG TABLET 20 MG PO (09:11)
[2023-08-22] MEDS: GABAPENTIN 100 MG CAPSULE PO ×2 (09:11→17:48)
--- NOTE | 2023-08-22 10:01 | PM.PNCARD ---
Progress Note: A&P Assessment and Plan (1) Elevated troponin: Code(s): R79.89 - Other specified abnormal findings of blood chemistry Status: Acute Assessment and Plan: Flat troponin elevation with presentation without associated chest pain, shortness of breath or other symptoms concerning for acute coronary syndrome. Likely related to into renal disease. Patient is otherwise hemodynamically stable. Recent CABG outside hospital along with bioprosthetic AVR. No plans for invasive workup. Recent echocardiogram/transesophageal echocardiogram [facility]. Furthermore, review of chart reveals chronic elevation of troponins lower this hospitalization and previous. Continue aspirin 81 mg daily, clopidogrel 75 mg daily. Monitor for bleeding. No recommendations for repeat ischemic evaluation at this time. (2) Hypersomnolence: Code(s): G47.10 - Hypersomnia, unspecified Status: Acute Assessment and Plan: Reported questionable syncopal episodes, recommend patient and his report problem with intermittent hypotension during hemodialysis with these episodes. He receives midodrine periodically due to hypotension predominant during dialysis but also at home. These events are not secondary to acute coronary syndrome or bradyarrhythmia as patient has a micra pacemaker device and is intermittently paced. Patient is also severely anemic. (3) A-fib: Qualifiers: Atrial fibrillation type: unspecified Qualified Code(s): I48.91 - Unspecified atrial fibrillation Code(s): I48.91 - Unspecified atrial fibrillation Status: Acute Assessment and Plan: Paroxysmal, status post Watchman. Known indication for systemic anticoagulation from this perspective. (4) ESRD on dialysis: Code(s): N18.6 - End stage renal disease; Z99.2 - Dependence on renal dialysis Status: Acute Assessment and Plan: Management per Nephrology. Avoid intravascular volume depletion and relative hypotension. Midodrine with dialysis with concern as warranted. Given his history of MSSA bacteremia lower extremity wound he must be continued on his IV antibiotic regimen he was receiving prior to admission. Defer to primary service in this regard. Echo pending (5) JUDITH on CPAP: Code(s): G47.33 - Obstructive sleep apnea (adult) (pediatric); Z99.89 - Dependence on other enabling machines and devices Status: Acute Assessment and Plan: Continue CPAP for treatment of JUDITH. (6) History of left atrial appendage closure: Code(s): Z98.890 - Other specified postprocedural states Status: Acute Assessment and Plan: History of Watchman device. No indication for anticoagulation given history of atrial fibrillation. (7) CAD (coronary artery disease): Code(s): I25.10 - Atherosclerotic heart disease of [place] coronary artery without angina pectoris Status: Acute Assessment and Plan: As above, stable, status post CABG. (8) Status post aortic valve replacement with bioprosthetic valve: Code(s): Z95.3 - Presence of xenogenic heart valve Status: Acute Assessment and Plan: Patient history recent bacteremia for which 6 weeks IV antibiotics as recommended. He had a transesophageal echocardiogram with possible artifact that could not be readily count for and as such given his MSSA bacteremia and presence of bioprosthetic aortic valve prolonged antibiotics as advised. Furthermore, the recommendation was to repeat [place] as an outpatient toward the end of his treatment started in the end of July. Patient has been afebrile, no leukocytosis or new suggestion of active infection beyond what he is currently on IV antibiotics. He has a he systolic murmur in left sternal border and a faint systolic murmur in the right upper sternal border need to confirm if there is any change in this regard after review of prior records. However, clinically he is not providing new sy
--- NOTE | 2023-08-22 10:29 | PM.PNNEP ---
Progress Note: A&P Assessment and Plan (1) ESRD (end stage renal disease): Code(s): N18.6 - End stage renal disease Status: Acute Assessment and Plan: the patient has end-stage renal disease. he did well with dialysis yesterday. Another treatment will be done today. After that he is okay for discharge from the kidney standpoint to [place]. (2) Mental status alteration: Code(s): R41.82 - Altered mental status, unspecified Status: Acute Assessment and Plan: The patient had mental status changes in dialysis yesterday. Likely due to pain meds and muscle relaxers. (3) Benign essential hypertension: Code(s): I10 - Essential (primary) hypertension Status: Acute Assessment and Plan: Blood pressure is under good control Systolic is 114 this morning. (4) Hyperlipidemia: Qualifiers: Hyperlipidemia type: mixed hyperlipidemia Qualified Code(s): E78.2 - Mixed hyperlipidemia Code(s): E78.5 - Hyperlipidemia, unspecified Status: Acute Assessment and Plan: he gets Crestor for this long-term (5) A-fib: Qualifiers: Atrial fibrillation type: unspecified Qualified Code(s): I48.91 - Unspecified atrial fibrillation Code(s): I48.91 - Unspecified atrial fibrillation Status: Acute Assessment and Plan: heart rate is good at 62. He has a paced rhythm (6) JUDITH on CPAP: Code(s): G47.33 - Obstructive sleep apnea (adult) (pediatric); Z99.89 - Dependence on other enabling machines and devices Status: Acute Assessment and Plan: he uses the CPAP machine at home (7) Renal osteodystrophy: Code(s): N25.0 - Renal osteodystrophy Status: Acute Assessment and Plan: will check a phosphorus in the morning if he still here. Was not done on today's labs. This can be done at dialysis if he goes home today. (8) Erythropoietin deficiency anemia: Code(s): D63.1 - Anemia in chronic kidney disease Status: Acute Assessment and Plan: hemoglobin is 7.7. He will get Epogen on dialysis Subjective Date/time seen: 08/22/23 10:29 Interval history: Antonio is feeling better. No more mental status issues. He has frequent bowel movements, some soft, some solid. No liquid stools. Review of Systems Cardiovascular: Cardiovascular: Reports no additional cardiovascular complaints Respiratory: Respiratory: Reports no additional respiratory complaints Gastrointestinal: Gastrointestinal: Reports no additional gastrointestinal complaints Genitourinary: Genitourinary: Reports no additional male genitourinary complaints Exam Narrative: WDWN in NAD skin no rash or subcu nodules head ncat lungs clear cor reg no rub abd BS+ nontender and soft ext no edema. Objective Data Vital Signs Vital Signs: Vital Signs - 24 hr 08/21/23 11:47 08/21/23 12:40 08/21/23 12:49 Temperature 97.1 F L 98.4 F Pulse Rate 60 67 64 Respiratory Rate 20 16 Blood Pressure 117/70 116/66 114/52 L Pulse Oximetry 100 Oxygen Delivery 08/21/23 13:00 08/21/23 13:15 08/21/23 13:30 Temperature Pulse Rate 71 82 79 Respiratory Rate Blood Pressure 119/71 109/72 110/42 L Pulse Oximetry Oxygen Delivery 08/21/23 13:45 08/21/23 14:00 08/21/23 14:15 Temperature Pulse Rate 81 84 82 Respiratory Rate Blood Pressure 111/64 107/69 121/69 Pulse Oximetry Oxygen Delivery 08/21/23 14:30 08/21/23 14:45 08/21/23 15:00 Temperature Pulse Rate 62 60 60 Respiratory Rate Blood Pressure 100/56 L 110/62 102/61 Pulse Oximetry Oxygen Delivery 08/21/23 15:15 08/21/23 15:30 08/21/23 15:45 Temperature Pulse Rate 59 L 60 59 L Respiratory Rate Blood Pressure 107/59 L 101/57 L 104/60 Pulse Oximetry Oxygen Delivery 08/21/23 15:56 08/21/23 16:00 08/21/23 17:14 Temperature 98.1 F 97.2 F L Puls
--- NOTE | 2023-08-22 12:01 | PCPTNOTE ---
08/22/23 MW PT - patient in dialysis this am. Will attempt eval this pm.
--- NOTE | 2023-08-22 12:33 | PM.IMPN ---
Progress Note: A&P Assessment and Plan (1) Syncope: Code(s): R55 - Syncope and collapse Status: Acute (2) ESRD on dialysis: Code(s): N18.6 - End stage renal disease; Z99.2 - Dependence on renal dialysis Status: Acute (3) JUDITH on CPAP: Code(s): G47.33 - Obstructive sleep apnea (adult) (pediatric); Z99.89 - Dependence on other enabling machines and devices Status: Acute (4) A-fib: Qualifiers: Atrial fibrillation type: unspecified Qualified Code(s): I48.91 - Unspecified atrial fibrillation Code(s): I48.91 - Unspecified atrial fibrillation Status: Acute (5) Elevated troponin: Code(s): R79.89 - Other specified abnormal findings of blood chemistry Status: Acute Plan The patient is a 72-year-old male with a past medical history significant for end-stage renal disease on hemodialysis, atrial fibrillation with Watchman device, hypertension, hyperlipidemia, degenerative disc disease, obstructive sleep apnea on CPAP, and recent little toe amputation. He presents to the ER with seizure-like activity and hallucinations of wolves during dialysis, which he does not recall. Initial blood pressure was very low but has since normalized with IV fluids. He is admitted for observation. Chest x-ray indicates congestive heart failure and pulmonary edema. He has a history of sternotomy and cardiac valve replacements. Laboratory findings include troponin of 0.044 and hemoglobin of 8.5. EKG shows ventricular pacing without specific ST-T changes. CT head reveals no acute intracranial process but age-related changes with mild to moderate diffuse volume loss and mild to moderate scattered white matter hyperintensities consistent with chronic ischemic disease. ESRD on HD probably related to elevated troponin patient has history of elevated troponin, cardiology consulted suspected related to renal failure Coronary artery disease status post CABG 0 11/30 Bioprosthetic aortic valve replacement Hyper somnolence versus syncopal episodes intermittent hypertension hemodialysis periodically receives midodrine. He was also on gabapentin which was recently increased Syncope, suspect dialysis disequilibrium syndrome, or inta dialytic hemodynamic instability, CT head negative. Will lower dose of gabapentin Recent bacteremia blood culture have been obtained and is currently no growth to date kristin was negative. Reviewed [facility] records. MSSA bacteremia. Id recommendations were cefazolin 2 g/2 g/3 g 07/21 to 09/01 with hemodialysis metronidazole p.o. 07/15 -08/26 and Bactrim 07/15 to 08/26 1 double strand daily. End-stage renal disease on hemodialysis JUDITH on CPAP history of atrial fibrillation status post Watchman vTE Prophylaxis: Apixaban DIET: Renal diet Anticipated hospital stay: > 2 days Code Status: Full code Subjective Date/time seen: 08/22/23 12:33 Interval history: Feeling better. Still weak. Does not work with therapy yet. Going for dialysis again today. Underwent dialysis yesterday. at bedside discussed with her. Mental status has improved Review of Systems Review of Systems: All systems reviewed & are unremarkable except as noted in HPI and below Exam Narrative: GENERAL: Well-appearing, well-nourished, and in no acute distress. HEAD: Normocephalic, atraumatic. ENT: Mucous membranes moist. NECK: Supple. CHEST: Clear to auscultation. No respiratory distress. HEART: Irregular irregular rate and rhythm. Normal peripheral pulses. ABDOMEN: Soft, nontender, nondistended. EXTREMITIES: Normal range of motion. No edema. SKIN: Warm, dry, no rash. Left foot to amputation ulceration left eldridge and left great toe noted NEURO: Alert and oriented x3. PSYCH: Normal mood and affect. Objective Data Vital Signs Vital Signs: Vital Signs - 24 hr 08/21/23 12:40 08/21/23 12:49 08/21/23 13:00 Temperature 98.4 F Pulse Rate 67 64 71 Respiratory Rate 16 Blood Pressure 116/66 11
[2023-08-22] MEDS: SODIUM CHLORIDE 0.9% IV 1,000 ML 999 ML IV CONT (13:27)
[2023-08-22] MEDS: HYDROcodone/acetaminophen (*CRX) 5-325 MG TABLET 1 TAB PO ×2 (14:50→20:07)
[2023-08-22] MEDS: EPOETIN ALFA-EPBX 10,000 UNITS/ML VIAL 10000 UNITS IV PUSH (15:43)
--- NOTE | 2023-08-22 15:49 | PCOTNOTE ---
Attempted to see patient for OT evaluation. Patient in dialysis. Will continue to attempt.
--- NOTE | 2023-08-22 17:51 | PC.NURSE ---
Pt was transferred directly after dialysis at 1730. [facility] Specialist had to acknowledge several medications and non admin them since patient was not in my care at the time they were due.
[2023-08-22] MEDS: ceFAZolin 3 GM/D5W 100 ML 100 ML IVPB (18:43)
[2023-08-22] MEDS: metroNIDAZOLE 500 MG TABLET PO (20:07)
[2023-08-22] MEDS: CYCLOBENZAPRINE HCL 5 MG TABLET PO (21:20)
[2023-08-23] VITALS (7 sets, daily range): BP systolic 103–114; BP diastolic 68–77; PULSE 60–84; RESP 17–18; TEMP 36.3–36.9; O2SAT 94–97
[2023-08-23 05:47] LABS: Basophils Percent Auto 0.3 % (0.2-1.2); Eosinophils Absolute Auto 0.1 K/mm3 (0-0.3); Hemoglobin 8.3 g/dL (14.0-18.0); Immature Granulocyte Absolute 0.07 K/mm3 (0.00-0.031); Immature Granulocyte Percent A 0.7 % (0-0.5); Lymphocytes Absolute Auto 0.77 K/mm3 (0.9-3.2); Lymphocytes Percent Auto 7.8 % (18.3-44.2); Mean Corpuscular HGB Conc 30.7 g/dl (32-36); Mean Corpuscular Hemoglobin 36.2 pg (26-34); Mean Corpuscular Volume 117.9 fl (80-100); Mean Platelet Volume 9.8 fl (7.4-10.4); Monocytes Absolute Auto 0.9 K/mm3 (0.1-0.6); Monocytes Percent Auto 9.3 % (2.6-8.5); Neutrophils Percent Auto 80.9 % (45.5-73.1); Platelet Count Result 240 k/mm3 (150-375); Red Blood Count 2.29 M/mm3 (4.6-6.20); Red Cell Distribution Width 16.3 % (11.5-14.5); White Blood Count 9.9 K/mm3 (4.5-10.0)
[2023-08-23] MEDS: metroNIDAZOLE 500 MG TABLET PO ×3 (05:49→21:18)
[2023-08-23] MEDS: LEVOTHYROXINE SODIUM 50 MCG TABLET PO (05:49)
[2023-08-23 06:16] LABS: Alanine Aminotransferase 6 U/L (6-50); Albumin Level 3.3 g/dL (3.5-5.1); Alkaline Phosphatase 127 U/L (38-126); Anion Gap 9 mmol/L (8-16); Aspartate Amino Transferase 33 U/L (17-59); Bilirubin,Total 0.9 mg/dL (0.2-1.3); Blood Urea Nitrogen 18 mg/dL (9-20); Calcium 9.3 mg/dL (8.4-10.2); Carbon Dioxide 31 mmol/L (22-30); Chloride 96 mmol/L (98-107); Estimated CRCL calculation 19 ml/min; Estimated Glomerular Filt Rate 19; Glucose 86 mg/dL (65-110); Potassium 4.4 mmol/L (3.4-5.0); Sodium 136 mmol/L (137-145)
[2023-08-23 06:26] LABS: Hypochromasia 1+ (NORMAL); Macrocytosis 1+ (NORMAL); Platelet Estimate Adequate (Adequate); Schistocytes None Seen (NORMAL)
--- NOTE | 2023-08-23 09:03 | PM.PNCARD ---
Progress Note: A&P Assessment and Plan (1) Elevated troponin: Code(s): R79.89 - Other specified abnormal findings of blood chemistry Status: Acute Assessment and Plan: Flat troponin elevation with presentation without associated chest pain, shortness of breath or other symptoms concerning for acute coronary syndrome. Likely related to into renal disease. Patient is otherwise hemodynamically stable. Recent CABG outside hospital along with bioprosthetic AVR. No plans for invasive workup. Recent echocardiogram/transesophageal echocardiogram [facility]. Furthermore, review of chart reveals chronic elevation of troponins lower this hospitalization and previous. Continue aspirin 81 mg daily, clopidogrel 75 mg daily. Monitor for bleeding. No recommendations for repeat ischemic evaluation at this time. (2) Hypersomnolence: Code(s): G47.10 - Hypersomnia, unspecified Status: Acute Assessment and Plan: Reported questionable syncopal episodes, recommend patient and his report problem with intermittent hypotension during hemodialysis with these episodes. He receives midodrine periodically due to hypotension predominant during dialysis but also at home. These events are not secondary to acute coronary syndrome or bradyarrhythmia as patient has a micra pacemaker device and is intermittently paced. Patient is also severely anemic. (3) A-fib: Qualifiers: Atrial fibrillation type: unspecified Qualified Code(s): I48.91 - Unspecified atrial fibrillation Code(s): I48.91 - Unspecified atrial fibrillation Status: Acute Assessment and Plan: Paroxysmal, status post Watchman. Known indication for systemic anticoagulation from this perspective. (4) ESRD on dialysis: Code(s): N18.6 - End stage renal disease; Z99.2 - Dependence on renal dialysis Status: Acute Assessment and Plan: Management per Nephrology. Avoid intravascular volume depletion and relative hypotension. Midodrine with dialysis with concern as warranted. Given his history of MSSA bacteremia lower extremity wound he must be continued on his IV antibiotic regimen he was receiving prior to admission. Defer to primary service in this regard. Echo pending (5) JUDITH on CPAP: Code(s): G47.33 - Obstructive sleep apnea (adult) (pediatric); Z99.89 - Dependence on other enabling machines and devices Status: Acute Assessment and Plan: Continue CPAP for treatment of JUDITH. (6) History of left atrial appendage closure: Code(s): Z98.890 - Other specified postprocedural states Status: Acute Assessment and Plan: History of Watchman device. No indication for anticoagulation given history of atrial fibrillation. (7) CAD (coronary artery disease): Code(s): I25.10 - Atherosclerotic heart disease of [place] coronary artery without angina pectoris Status: Acute Assessment and Plan: As above, stable, status post CABG. (8) Status post aortic valve replacement with bioprosthetic valve: Code(s): Z95.3 - Presence of xenogenic heart valve Status: Acute Assessment and Plan: Patient history recent bacteremia for which 6 weeks IV antibiotics as recommended. He had a transesophageal echocardiogram with possible artifact that could not be readily count for and as such given his MSSA bacteremia and presence of bioprosthetic aortic valve prolonged antibiotics as advised. Furthermore, the recommendation was to repeat [place] as an outpatient toward the end of his treatment started in the end of July. Repeat echo pending Plan He tolerated dialysis yesterday. Creatinine today 3.2. Anticipate DC to rehab tomorrow after echo Subjective Date/time seen: 08/23/23 09:03 Interval history: 72-year-old within status renal disease and syncope Date of service 08/22/2023: Feels reasonably day. Anxious to go home. Has diarrhea however Date of service
--- NOTE | 2023-08-23 09:10 | PCPTNOTE ---
08/23/23 MW PT Eval completed
--- NOTE | 2023-08-23 09:24 | PM.PNNEP ---
Progress Note: A&P Assessment and Plan (1) ESRD (end stage renal disease): Code(s): N18.6 - End stage renal disease Status: Acute Assessment and Plan: the patient has end-stage renal disease. he did well with dialysis yesterday. next treatment is due on Thursday. (2) Mental status alteration: Code(s): R41.82 - Altered mental status, unspecified Status: Acute Assessment and Plan: The patient had mental status changes in dialysis yesterday. Likely due to pain meds and muscle relaxers. No more changes in mental status lately. (3) Benign essential hypertension: Code(s): I10 - Essential (primary) hypertension Status: Acute Assessment and Plan: Blood pressure is under good control Systolic is 114/77 this morning. (4) Hyperlipidemia: Qualifiers: Hyperlipidemia type: mixed hyperlipidemia Qualified Code(s): E78.2 - Mixed hyperlipidemia Code(s): E78.5 - Hyperlipidemia, unspecified Status: Acute Assessment and Plan: he gets Crestor for this long-term (5) A-fib: Qualifiers: Atrial fibrillation type: unspecified Qualified Code(s): I48.91 - Unspecified atrial fibrillation Code(s): I48.91 - Unspecified atrial fibrillation Status: Acute Assessment and Plan: heart rate is good at 67. He has a paced rhythm (6) JUDITH on CPAP: Code(s): G47.33 - Obstructive sleep apnea (adult) (pediatric); Z99.89 - Dependence on other enabling machines and devices Status: Acute Assessment and Plan: he uses the CPAP machine at home (7) Renal osteodystrophy: Code(s): N25.0 - Renal osteodystrophy Status: Acute Assessment and Plan: will check a phosphorus in the morning if he still here. Was not done on today's labs. This can be done at dialysis if he goes home today. (8) Erythropoietin deficiency anemia: Code(s): D63.1 - Anemia in chronic kidney disease Status: Acute Assessment and Plan: hemoglobin is 7.7. He will get Epogen on dialysis Subjective Date/time seen: 08/23/23 09:24 Interval history: Antonio is feeling okay today. Eager to get back to [place] so he can start his physical therapy Exam Narrative: WDWN in NAD skin no rash or subcu nodules head ncat lungs clear bilaterally cor reg no rub or gallop abd BS+ nontender and soft ext no edema. Objective Data Vital Signs Vital Signs: Vital Signs - 24 hr 08/22/23 10:00 08/22/23 11:13 08/22/23 11:13 Temperature Pulse Rate 60 60 60 Respiratory Rate 20 Blood Pressure Pulse Oximetry 98 Oxygen Delivery Room Air 08/22/23 11:59 08/22/23 13:17 08/22/23 13:27 Temperature 97.5 F L 97.4 F L Pulse Rate 62 85 82 Respiratory Rate 20 20 Blood Pressure 146/72 H 129/80 106/72 Pulse Oximetry 99 Oxygen Delivery 08/22/23 14:30 08/22/23 13:30 08/22/23 13:45 Temperature Pulse Rate 64 77 65 Respiratory Rate Blood Pressure 113/53 L 117/65 101/54 L Pulse Oximetry Oxygen Delivery 08/22/23 14:00 08/22/23 14:15 08/22/23 14:45 Temperature Pulse Rate 66 56 L 57 L Respiratory Rate Blood Pressure 106/58 L 102/59 L 99/35 L Pulse Oximetry Oxygen Delivery 08/22/23 15:00 08/22/23 15:15 08/22/23 15:30 Temperature Pulse Rate 74 63 60 Respiratory Rate Blood Pressure 120/66 120/69 121/70 Pulse Oximetry Oxygen Delivery 08/22/23 16:55 08/22/23 15:45 08/22/23 16:00 Temperature 97.6 F Pulse Rate 62 61 60 Respiratory Rate 18 Blood Pressure 132/68 120/67 121/70 Pulse Oximetry Oxygen Delivery 08/22/23 16:15 08/22/23 16:29 08/22/23 20:09 Temperature 98.3 F Pulse Rate 60 60 64 Respiratory Rate 18 Blood Pressure 122/78 116/70 105/63 Pulse Oximetry 98 Oxygen Delivery 08/22/23 20:00 08/23/23 06:00 08/22/23 20:00 Temperature 98.5 F Pulse Rate 67 64 Respiratory Rate
[2023-08-23] MEDS: CLOPIDOGREL BISULFATE 75 MG TABLET PO (09:32)
[2023-08-23] MEDS: SULFAMETHOXAZOLE/TRIMETHOPRIM 800/160 MG DS TABLET 1 TAB PO (09:33)
[2023-08-23] MEDS: ESCITALOPRAM OXALATE 10 MG TABLET 20 MG PO (09:33)
[2023-08-23] MEDS: SILVER SULFADIAZINE 1% CR 400 GM JAR (*BKC) 1 APPLIC TOPICAL (09:33)
[2023-08-23] MEDS: ROSUVASTATIN 5 MG TABLET PO (09:33)
[2023-08-23] MEDS: ASPIRIN 81 MG ENTERIC TABLET PO (09:33)
[2023-08-23] MEDS: GABAPENTIN 100 MG CAPSULE PO ×3 (09:33→17:42)
[2023-08-23] MEDS: ACETAMINOPHEN 325 MG TABLET 650 MG PO (09:36)
--- NOTE | 2023-08-23 12:30 | PM.IMPN ---
Progress Note: A&P Assessment and Plan (1) Syncope: Code(s): R55 - Syncope and collapse Status: Acute (2) ESRD on dialysis: Code(s): N18.6 - End stage renal disease; Z99.2 - Dependence on renal dialysis Status: Acute (3) JUDITH on CPAP: Code(s): G47.33 - Obstructive sleep apnea (adult) (pediatric); Z99.89 - Dependence on other enabling machines and devices Status: Acute (4) A-fib: Qualifiers: Atrial fibrillation type: unspecified Qualified Code(s): I48.91 - Unspecified atrial fibrillation Code(s): I48.91 - Unspecified atrial fibrillation Status: Acute (5) Elevated troponin: Code(s): R79.89 - Other specified abnormal findings of blood chemistry Status: Acute Plan The patient is a 72-year-old male with a past medical history significant for end-stage renal disease on hemodialysis, atrial fibrillation with Watchman device, hypertension, hyperlipidemia, degenerative disc disease, obstructive sleep apnea on CPAP, and recent little toe amputation. He presents to the ER with seizure-like activity and hallucinations of wolves during dialysis, which he does not recall. Initial blood pressure was very low but has since normalized with IV fluids. He is admitted for observation. Chest x-ray indicates congestive heart failure and pulmonary edema. He has a history of sternotomy and cardiac valve replacements. Laboratory findings include troponin of 0.044 and hemoglobin of 8.5. EKG shows ventricular pacing without specific ST-T changes. CT head reveals no acute intracranial process but age-related changes with mild to moderate diffuse volume loss and mild to moderate scattered white matter hyperintensities consistent with chronic ischemic disease. ESRD on HD probably related to elevated troponin patient has history of elevated troponin, cardiology consulted suspected related to renal failure Coronary artery disease status post CABG 0 11/30 Bioprosthetic aortic valve replacement Hyper somnolence versus syncopal episodes intermittent hypertension hemodialysis periodically receives midodrine. He was also on gabapentin which was recently increased Syncope, suspect dialysis disequilibrium syndrome, or inta dialytic hemodynamic instability, CT head negative. Will lower dose of gabapentin Recent bacteremia blood culture have been obtained and is currently no growth to date kristin was negative. Reviewed [facility] records. MSSA bacteremia. Id recommendations were cefazolin 2 g/2 g/3 g 07/21 to 09/01 with hemodialysis metronidazole p.o. 07/15 -08/26 and Bactrim 07/15 to 08/26 1 double strength once daily. End-stage renal disease on hemodialysis JUDITH on CPAP history of atrial fibrillation status post Watchman vTE Prophylaxis: Apixaban DIET: Renal diet Anticipated hospital stay: > 2 days Code Status: Full code Subjective Date/time seen: 08/23/23 12:30 Interval history: No overnight events remains afebrile. Antibiotics were started. Working with therapy. Review of Systems Review of Systems: All systems reviewed & are unremarkable except as noted in HPI and below Exam Narrative: GENERAL: Well-appearing, well-nourished, and in no acute distress. HEAD: Normocephalic, atraumatic. ENT: Mucous membranes moist. NECK: Supple. CHEST: Clear to auscultation. No respiratory distress. HEART: Irregular irregular rate and rhythm. Normal peripheral pulses. ABDOMEN: Soft, nontender, nondistended. EXTREMITIES: Normal range of motion. No edema. SKIN: Warm, dry, no rash. Left foot to amputation ulceration left eldridge and left great toe noted NEURO: Alert and oriented x3. PSYCH: Normal mood and affect. Objective Data Vital Signs Vital Signs: Vital Signs - 24 hr 08/22/23 13:17 08/22/23 13:27 08/22/23 14:30 Temperature 97.4 F L Pulse Rate 85 82 64 Respiratory Rate 20 Blood Pressure 129/80 106/72 113/53 L Pulse Oximetry Oxygen Delivery 08/22/23 13:30 08/22/23 13:45 08/22
[2023-08-23] MEDS: CYCLOBENZAPRINE HCL 5 MG TABLET PO (21:18)
--- NOTE | 2023-08-24 | ECHO_ITS ---
Patient Info Name: Antonio Wing Age: 72 years : 1950 Gender: Male Ht: 70 in Wt: 185 lbs BSA: 2.05 m2 HR: 92 bpm BP: 105 / 68 mmHg Heart Rhythm: Indeterminant Technical Quality: Fair Exam Date: 08/24/2023 9:38 AM Exam Location: Echo Lab Exam Room: [facility] Patient Status: Inpatient Admit Date: 08/23/2023 Staff Ordering Physician: Danette Gunn APRN Hair Rooting Machine Operator: Rut Gaytan RDCS Attending Provider: Mundo Chamorro MD Exam Type: CA echo doppler color flow Study Info Complete two-dimensional, color flow and Doppler transthoracic echocardiogram is performed. Summary 1. Complete two-dimensional, color flow and Doppler transthoracic echocardiogram is performed. 2. Mild LV enlargement with mild global systolic dysfunction. 3. Severe biatrial dilation. 4. Bioprosthetic aortic valve with trivial AI. 5. Small amount of mitral and tricuspid regurgitation. 6. No infectious vegetations are identified. Left Ventricle Left ventricular chamber dimension is mildly enlarged. Left ventricular systolic function is mildly reduced, estimated at 40-45%. Right Ventricle Right ventricular chamber dimension is mildly enlarged. Right ventricular systolic function is reduced. Left Atria Left atrial chamber dimension is severely enlarged. Right Atria Right atrial chamber dimension is severely enlarged. Aortic Valve There is trace regurgitation of the bioprosthetic aortic valve. Pulmonic Valve The pulmonic valve is not well visualized. Mitral Valve The mitral valve has normal leaflets. There is trace mitral valve regurgitation. Tricuspid Valve The tricuspid valve leaflets are normal. There is mild tricuspid valve regurgitation. Pericardium/Pleural The pericardium appears normal. Aorta The aortic root size at the sinus of Valsalva is normal. Left Ventricular Outflow Tract Name Value Normal LVOT 2D LVOT Diameter 2.0 cm LVOT Doppler LVOT Peak Gradient 6 mmHg LVOT Mean Gradient 3 mmHg LVOT VTI 24 cm LVOT VTI/AV VTI Ratio 0.5 LVOT Stroke Volume 77 ml LVOT CO 16.7 l/min LVOT CI 8.1 l/min/m2 Pulmonic Valve Name Value Normal RVOT Doppler RVOT Peak Gradient 1 mmHg PV Doppler PV Peak Gradient 2 mmHg Mitral Valve Name Value Normal MV Doppler MV Decel [place] 181 cm/s2 MV PHT 103 ms MV Area (PHT)
[2023-08-24 05:50] LABS: Basophils Percent Auto 0.6 % (0.2-1.2); Eosinophils Absolute Auto 0.2 K/mm3 (0-0.3); Eosinophils Percent Auto 3.3 % (0-4.4); Hematocrit 27.9 % (42.0-52.0); Hemoglobin 8.5 g/dL (14.0-18.0); Immature Granulocyte Absolute 0.06 K/mm3 (0.00-0.031); Immature Granulocyte Percent A 0.9 % (0-0.5); Lymphocytes Absolute Auto 0.87 K/mm3 (0.9-3.2); Lymphocytes Percent Auto 12.3 % (18.3-44.2); Mean Corpuscular HGB Conc 30.5 g/dl (32-36); Mean Corpuscular Volume 118.2 fl (80-100); Mean Platelet Volume 9.7 fl (7.4-10.4); Monocytes Absolute Auto 0.8 K/mm3 (0.1-0.6); Monocytes Percent Auto 11.1 % (2.6-8.5); Neutrophils Absolute Auto 5.1 K/mm3 (1.3-6.7); Neutrophils Percent Auto 71.8 % (45.5-73.1); Platelet Count Result 223 k/mm3 (150-375); Red Blood Count 2.36 M/mm3 (4.6-6.20); Red Cell Distribution Width 16.1 % (11.5-14.5); White Blood Count 7.1 K/mm3 (4.5-10.0)
[2023-08-24 06:00] VITALS: BP 110/67; PULSE 85; RESP 19; TEMP 36.4; O2SAT 96
[2023-08-24 06:18] LABS: Albumin Level 3.3 g/dL (3.5-5.1); Alkaline Phosphatase 145 U/L (38-126); Anion Gap 7 mmol/L (8-16); Aspartate Amino Transferase 27 U/L (17-59); Bilirubin,Total 0.8 mg/dL (0.2-1.3); Blood Urea Nitrogen 24 mg/dL (9-20); Calcium 9.9 mg/dL (8.4-10.2); Carbon Dioxide 36 mmol/L (22-30); Chloride 94 mmol/L (98-107); Estimated CRCL calculation 14 ml/min; Estimated Glomerular Filt Rate 13; Glucose 86 mg/dL (65-110); Phosphorus 3.6 mg/dL (2.5-4.5); Potassium 4.1 mmol/L (3.4-5.0); Sodium 137 mmol/L (137-145)
[2023-08-24] MEDS: metroNIDAZOLE 500 MG TABLET PO ×3 (06:19→21:21)
[2023-08-24] MEDS: LEVOTHYROXINE SODIUM 50 MCG TABLET PO (06:19)
[2023-08-24 06:25] LABS: Alanine Aminotransferase < 6 U/L (6-50)
[2023-08-24 06:32] LABS: Anisocytosis 1+ (NORMAL); Macrocytosis 1+ (NORMAL); Platelet Estimate Adequate (Adequate); Schistocytes None Seen (NORMAL)
--- NOTE | 2023-08-24 09:30 | PC.NURSE ---
RN gave update on patient status to Marlene via telephone
--- NOTE | 2023-08-24 09:49 | PCPTNOTE ---
Attempted to see patient for PT, however patient was having testing done at this time and unable to be seen.
--- NOTE | 2023-08-24 10:45 | PC.NURSE ---
RN gave update on patient status to Marlene [facility]
[2023-08-24] MEDS: ROSUVASTATIN 5 MG TABLET PO (10:59)
[2023-08-24] MEDS: ASPIRIN 81 MG ENTERIC TABLET PO (10:59)
[2023-08-24] MEDS: ESCITALOPRAM OXALATE 10 MG TABLET 20 MG PO (10:59)
[2023-08-24] MEDS: CLOPIDOGREL BISULFATE 75 MG TABLET PO (11:00)
[2023-08-24] MEDS: SULFAMETHOXAZOLE/TRIMETHOPRIM 800/160 MG DS TABLET 1 TAB PO (11:00)
[2023-08-24] MEDS: GABAPENTIN 100 MG CAPSULE PO ×3 (11:00→17:12)
--- NOTE | 2023-08-24 11:07 | PM.PNNEP ---
Progress Note: A&P Assessment and Plan (1) ESRD (end stage renal disease): Code(s): N18.6 - End stage renal disease Status: Acute Assessment and Plan: HD tomorrow continue T/T/S dialysis schedule while hospitalized follow electrolytes, volume status, and clearance (2) Mental status alteration: Code(s): R41.82 - Altered mental status, unspecified Status: Acute Assessment and Plan: thought to be medication related (combo of pain medications and muscle relaxers) no further issues since admission continue supportive therapy (3) Syncope: Code(s): R55 - Syncope and collapse Status: Acute Assessment and Plan: CT of head noted Echo results reviewed thought to be secondary to intradialytic hypotension + recent medication changes no further episodes (4) Benign essential hypertension: Code(s): I10 - Essential (primary) hypertension Status: Chronic Assessment and Plan: reasonable control follow trend of hemodynamics (5) Anemia: Code(s): D64.9 - Anemia, unspecified Status: Chronic Assessment and Plan: due to ESRD Epogen with HD follow trend of H/H Will continue to follow. Subjective Date/time seen: 08/24/23 11:07 Interval history: Follow-up for end stage renal disease on hemodialysis. Chart reviewed -- assuming care from Dr. Blanton; appears to be feeling reasonably well at the time of visit; no apparent distress noted; no issues/events overnight or earlier this morning. Exam Narrative: General: elderly but WD/WN male in NAD Heart: normal S1 and S2; no rub Lungs: clear to auscultation Abdomen: soft, nontender, nondistended, positive bowel sounds Extremities: no cyanosis or clubbing; no edema Skin: warm and dry Objective Data Vital Signs Vital Signs: Vital Signs Temp Pulse Resp BP Pulse Ox O2 Del Method 08/24/23 11:00 Room Air 08/24/23 06:00 97.6 F 85 19 110/67 96 08/23/23 21:18 97.3 F L 84 18 105/68 94 Intake/Output Intake/Output: Intake & Output 08/21/23 08/22/23 08/23/23 08/24/23 23:59 23:59 23:59 23:59 Intake Total 740 720 910 170 Output Total 3811 1252 0 Balance -1011 -532 910 170 Meds/Results Medications: Active Medications Generic Name Dose Route Start Last Admin Trade Name Hannah PRN Reason Stop Dose Admin Acetaminophen 650 mg 08/20/23 12:54 08/23/23 09:36 Acetaminophen 325 Mg Tablet PO 650 mg Q4H PRN Administration Mild Pain (1-3) or Fever Hydrocodone Bitart/Acetaminophen 1 tab 08/20/23 12:54 08/22/23 20:07 Hydrocodone/Acetaminophen (*Crx) 5-325 Mg Tablet PO 1 tab Q4H PRN Administration Pain Rated 4-6 Aspirin 81 mg 08/21/23 13:10 08/24/23 10:59 Aspirin 81 Mg Enteric Tablet PO 81 mg DAILY DONA Administration Bisacodyl 10 mg 08/21/23 14:26 Bisacodyl 10 Mg Suppository RECTAL QAM PRN Constipation Clopidogrel Bisulfate 75 mg 08/21/23 13:10 08/24/23 11:00 Clopidogrel Bisulfate 75 Mg Tablet PO 75 mg DAILY DONA Administration Cyclobenzaprine HCl 5 mg 08/22/23 21:17 08/23/23 21:18 Cyclobenzaprine Hcl 5 Mg Tablet PO 5 mg PRN PRN Administration MUSCLE SPASMS Escitalopram Oxalate 20 mg 08/21/23 13:10 08/24/23 10:59 Escitalopram Oxalate 10 Mg Tablet PO 20 mg DAILY DONA Administration Gabapentin 100 mg 08/21/23 17:00 08/24/23 11:00 Gabapentin 100 Mg Capsule PO 100 mg TID DONA Administration Albumin Human 50 mls @ 999 mls/hr 08/21/23 04:35 Albutein IVPB 09/20/23 04:34 Q10M PRN HYPOTENSION Cefazolin Sodium 2 gm in 50 mls @ 100 mls/hr 08/25/23 17:00 Ancef 2 Gm/D5w 50 Ml IVPB 09/01/23 16:59 TuTh@1700 DONA Cefazolin Sodium 100 mls @ 200 mls/hr 08/22/23 17:00 08/22/23 18:43 Ancef 3 Gm/D5w 100 Ml IVPB 09/01/23 23:59 200 mls/hr Sa@1700 DONA Administration Levothyroxine Sodium 50 mcg 08/21/23
[2023-08-24] MEDS: SILVER SULFADIAZINE 1% CR 400 GM JAR (*BKC) 1 APPLIC TOPICAL (11:11)
[2023-08-24 14:00] VITALS: BP 103/63; PULSE 109; RESP 16; TEMP 36.9; O2SAT 96
--- NOTE | 2023-08-24 15:05 | PM.IMPN ---
Progress Note: A&P Assessment and Plan (1) Syncope: Code(s): R55 - Syncope and collapse Status: Acute (2) ESRD on dialysis: Code(s): N18.6 - End stage renal disease; Z99.2 - Dependence on renal dialysis Status: Acute (3) JUDITH on CPAP: Code(s): G47.33 - Obstructive sleep apnea (adult) (pediatric); Z99.89 - Dependence on other enabling machines and devices Status: Acute (4) A-fib: Qualifiers: Atrial fibrillation type: unspecified Qualified Code(s): I48.91 - Unspecified atrial fibrillation Code(s): I48.91 - Unspecified atrial fibrillation Status: Acute (5) Elevated troponin: Code(s): R79.89 - Other specified abnormal findings of blood chemistry Status: Acute Plan The patient is a 72-year-old male with a past medical history significant for end-stage renal disease on hemodialysis, atrial fibrillation with Watchman device, hypertension, hyperlipidemia, degenerative disc disease, obstructive sleep apnea on CPAP, and recent little toe amputation. He presents to the ER with seizure-like activity and hallucinations of wolves during dialysis, which he does not recall. Initial blood pressure was very low but has since normalized with IV fluids. He is admitted for observation. Chest x-ray indicates congestive heart failure and pulmonary edema. He has a history of sternotomy and cardiac valve replacements. Laboratory findings include troponin of 0.044 and hemoglobin of 8.5. EKG shows ventricular pacing without specific ST-T changes. CT head reveals no acute intracranial process but age-related changes with mild to moderate diffuse volume loss and mild to moderate scattered white matter hyperintensities consistent with chronic ischemic disease. ESRD on HD probably related to elevated troponin patient has history of elevated troponin, cardiology consulted suspected related to renal failure Coronary artery disease status post CABG 0 11/30 Bioprosthetic aortic valve replacement Hyper somnolence versus syncopal episodes intermittent hypertension hemodialysis periodically receives midodrine. He was also on gabapentin which was recently increased Syncope, suspect dialysis disequilibrium syndrome, or inta dialytic hemodynamic instability, CT head negative. Will lower dose of gabapentin Recent bacteremia blood culture have been obtained and is currently no growth to date kristin was negative. Reviewed [facility] records. MSSA bacteremia. Id recommendations were cefazolin 2 g/2 g/3 g 07/21 to 09/01 with hemodialysis metronidazole p.o. 07/15 -08/26 and Bactrim 07/15 to 08/26 1 double strength once daily. End-stage renal disease on hemodialysis JUDITH on CPAP history of atrial fibrillation status post Watchman vTE Prophylaxis: Apixaban DIET: Renal diet Anticipated hospital stay: > 2 days Code Status: Full code Subjective Date/time seen: 08/24/23 15:05 Interval history: No overnight events. Feels well. Getting echocardiogram today. Denies any new complaints. Review of Systems Review of Systems: All systems reviewed & are unremarkable except as noted in HPI and below Exam Narrative: GENERAL: Well-appearing, well-nourished, and in no acute distress. HEAD: Normocephalic, atraumatic. ENT: Mucous membranes moist. NECK: Supple. CHEST: Clear to auscultation. No respiratory distress. HEART: Irregular irregular rate and rhythm. Normal peripheral pulses. ABDOMEN: Soft, nontender, nondistended. EXTREMITIES: Normal range of motion. No edema. SKIN: Warm, dry, no rash. Left foot to amputation ulceration left eldridge and left great toe noted NEURO: Alert and oriented x3. PSYCH: Normal mood and affect. Objective Data Vital Signs Vital Signs: Vital Signs - 24 hr 08/23/23 21:18 08/24/23 06:00 08/24/23 11:00 Temperature 97.3 F L 97.6 F Pulse Rate 84 85 Respiratory Rate 18 19 Blood Pressure 105/68 110/67 Pulse Oximetry 94 96 Oxygen Delivery Room Air 08/24/23 14:00 [place]
[2023-08-24 21:42] VITALS: BP 107/77; PULSE 62; RESP 17; TEMP 36.1; O2SAT 100
[2023-08-24] MEDS: CYCLOBENZAPRINE HCL 5 MG TABLET PO (22:10)
[2023-08-24] MEDS: HYDROcodone/acetaminophen (*CRX) 5-325 MG TABLET 1 TAB PO (22:10)
[2023-08-25] VITALS (18 sets, daily range): BP systolic 103–122; BP diastolic 55–71; PULSE 55–73; RESP 16–18; TEMP 36.3–37; O2SAT 100
[2023-08-25] MEDS: metroNIDAZOLE 500 MG TABLET PO ×2 (05:30→13:12)
[2023-08-25] MEDS: LEVOTHYROXINE SODIUM 50 MCG TABLET PO (05:30)
[2023-08-25 05:57] LABS: Basophils Percent Auto 0.5 % (0.2-1.2); Eosinophils Absolute Auto 0.2 K/mm3 (0-0.3); Eosinophils Percent Auto 3.2 % (0-4.4); Hematocrit 28.3 % (42.0-52.0); Hemoglobin 8.8 g/dL (14.0-18.0); Immature Granulocyte Absolute 0.06 K/mm3 (0.00-0.031); Immature Granulocyte Percent A 0.8 % (0-0.5); Lymphocytes Absolute Auto 0.81 K/mm3 (0.9-3.2); Lymphocytes Percent Auto 10.8 % (18.3-44.2); Mean Corpuscular HGB Conc 31.1 g/dl (32-36); Mean Corpuscular Hemoglobin 36.1 pg (26-34); Mean Platelet Volume 9.6 fl (7.4-10.4); Monocytes Absolute Auto 0.6 K/mm3 (0.1-0.6); Monocytes Percent Auto 8.4 % (2.6-8.5); Neutrophils Absolute Auto 5.7 K/mm3 (1.3-6.7); Neutrophils Percent Auto 76.3 % (45.5-73.1); Platelet Count Result 227 k/mm3 (150-375); Red Blood Count 2.44 M/mm3 (4.6-6.20); Red Cell Distribution Width 16.1 % (11.5-14.5); White Blood Count 7.5 K/mm3 (4.5-10.0)
[2023-08-25 06:06] LABS: Alanine Aminotransferase < 6 U/L (6-50); Albumin Level 3.1 g/dL (3.5-5.1); Alkaline Phosphatase 145 U/L (38-126); Anion Gap 9 mmol/L (8-16); Aspartate Amino Transferase 27 U/L (17-59); Bilirubin,Total 0.7 mg/dL (0.2-1.3); Blood Urea Nitrogen 28 mg/dL (9-20); Calcium 9.4 mg/dL (8.4-10.2); Carbon Dioxide 33 mmol/L (22-30); Chloride 93 mmol/L (98-107); Estimated CRCL calculation 12 ml/min; Estimated Glomerular Filt Rate 11; Glucose 75 mg/dL (65-110); Potassium 3.9 mmol/L (3.4-5.0); Sodium 135 mmol/L (137-145)
[2023-08-25 06:29] LABS: Hypochromasia 2+ (NORMAL); Platelet Estimate Adequate (Adequate); Polychromasia 1+ (NORMAL); Schistocytes None Seen (NORMAL); Tear Drop Cells 1+ (NORMAL)
[2023-08-25] MEDS: CLOPIDOGREL BISULFATE 75 MG TABLET PO (08:11)
[2023-08-25] MEDS: MIDODRINE HCL 2.5 MG TABLET 5 MG PO (08:11)
[2023-08-25] MEDS: GABAPENTIN 100 MG CAPSULE PO ×3 (08:11→16:44)
[2023-08-25] MEDS: ESCITALOPRAM OXALATE 10 MG TABLET 20 MG PO (08:11)
[2023-08-25] MEDS: SULFAMETHOXAZOLE/TRIMETHOPRIM 800/160 MG DS TABLET 1 TAB PO (08:11)
[2023-08-25] MEDS: ROSUVASTATIN 5 MG TABLET PO (08:11)
[2023-08-25] MEDS: SILVER SULFADIAZINE 1% CR 400 GM JAR (*BKC) 1 APPLIC TOPICAL (08:11)
[2023-08-25] MEDS: ASPIRIN 81 MG ENTERIC TABLET PO (08:11)
--- NOTE | 2023-08-25 08:18 | PCOTNOTE ---
The patient treatment was not able to be completed. Patient going to HD. Will plan to continue treatment per plan of care.
[2023-08-25] MEDS: HEPARIN SODIUM 1,000 UNITS/ML VIAL 500 UNITS IV PUSH ×3 (08:44→10:48)
[2023-08-25] MEDS: HEPARIN SODIUM 1,000 UNITS/ML VIAL 1000 UNITS IV PUSH (08:44)
--- NOTE | 2023-08-25 10:00 | PM.PNNEP ---
Progress Note: A&P Assessment and Plan (1) ESRD (end stage renal disease): Code(s): N18.6 - End stage renal disease Status: Acute Assessment and Plan: HD today continue T/T/S dialysis schedule while hospitalized follow electrolytes, volume status, and clearance (2) Mental status alteration: Code(s): R41.82 - Altered mental status, unspecified Status: Acute Assessment and Plan: thought to be medication related (combo of pain medications and muscle relaxers) no further issues since admission continue supportive therapy (3) Syncope: Code(s): R55 - Syncope and collapse Status: Acute Assessment and Plan: CT of head noted Echo results reviewed thought to be secondary to intradialytic hypotension + recent medication changes no further episodes (4) Benign essential hypertension: Code(s): I10 - Essential (primary) hypertension Status: Chronic Assessment and Plan: reasonable control follow trend of hemodynamics (5) Anemia: Code(s): D64.9 - Anemia, unspecified Status: Chronic Assessment and Plan: due to ESRD Epogen with HD follow trend of H/H Will continue to follow. Subjective Date/time seen: 08/25/23 10:00 Interval history: Follow-up for end stage renal disease on hemodialysis. Tolerating dialysis treatment at the time of my visit (seen on HD at 9:50AM); no apparent distress noted; no issues/events overnight or earlier this AM; overall, feels reasonably well. Exam Narrative: General: elderly but WD/WN male in NAD Heart: normal S1 and S2; no rub Lungs: clear to auscultation Abdomen: soft, nontender, nondistended, positive bowel sounds Extremities: no cyanosis or clubbing; no edema Skin: warm and intact Objective Data Vital Signs Vital Signs: Vital Signs Temp Pulse Resp BP Pulse Ox O2 Del Method 08/25/23 10:00 60 112/68 08/25/23 09:40 60 112/63 08/25/23 09:00 55 L 122/69 08/25/23 09:20 60 117/64 08/25/23 08:48 60 115/68 08/25/23 08:34 97.3 F L 61 16 113/71 08/25/23 05:07 97.7 F 67 18 105/55 L 100 08/24/23 21:42 97.0 F L 62 17 107/77 100 08/24/23 20:00 Room Air 08/24/23 14:00 98.4 F 109 H 16 103/63 96 08/24/23 11:00 Room Air Intake/Output Intake/Output: Intake & Output 08/22/23 08/23/23 08/24/23 08/25/23 23:59 23:59 23:59 23:59 Intake Total 720 910 990 250 Output Total 1252 0 Balance -532 910 990 250 Meds/Results Medications: Active Medications Generic Name Dose Route Start Last Admin Trade Name Freq PRN Reason Stop Dose Admin Acetaminophen 650 mg 08/20/23 12:54 08/23/23 09:36 Acetaminophen 325 Mg Tablet PO 650 mg Q4H PRN Administration Mild Pain (1-3) or Fever Hydrocodone Bitart/Acetaminophen 1 tab 08/20/23 12:54 08/24/23 22:10 Hydrocodone/Acetaminophen (*Crx) 5-325 Mg Tablet PO 1 tab Q4H PRN Administration Pain Rated 4-6 Aspirin 81 mg 08/21/23 13:10 08/25/23 08:11 Aspirin 81 Mg Enteric Tablet PO 81 mg DAILY DONA Administration Bisacodyl 10 mg 08/21/23 14:26 Bisacodyl 10 Mg Suppository RECTAL QAM PRN Constipation Clopidogrel Bisulfate 75 mg 08/21/23 13:10 08/25/23 08:11 Clopidogrel Bisulfate 75 Mg Tablet PO 75 mg DAILY DONA Administration Cyclobenzaprine HCl 5 mg 08/22/23 21:17 08/24/23 22:10 Cyclobenzaprine Hcl 5 Mg Tablet PO 5 mg PRN PRN Administration MUSCLE SPASMS Epoetin Julito-epbx 10,000 units 08/25/23 20:00 Epoetin Julito-Epbx 10,000 Units/Ml Vial IV PUSH 08/25/23 20:01 ONCE ONE Escitalopram Oxalate 20 mg 08/21/23 13:10 08/25/23 08:11 Escitalopram Oxalate 10 Mg Tablet PO 20 mg DAILY DONA Administration Gabapentin 100 mg 08/21/23 17:00 08/25/23 08:11 Gabapentin 100 Mg Capsule PO 100 mg TID DONA Administration Albumin Human 50 mls @ 999 mls/hr
--- NOTE | 2023-08-25 10:23 | PCPTNOTE ---
Attempted to see patient for PT, however patient was out of the room for dialysis.
[2023-08-25] MEDS: EPOETIN ALFA-EPBX 10,000 UNITS/ML VIAL 10000 UNITS IV PUSH (11:05)
--- NOTE | 2023-08-25 12:40 | PC.NURSE ---
Return from dialysis via bed.
--- NOTE | 2023-08-25 13:18 | PM.DS ---
DS: Admitting Diagnosis Discharge Date 08/25/2023 Admitting Diagnosis Altered mental status DS: Discharge Diagnosis Discharge Diagnosis (1) Syncope: Code(s): R55 - Syncope and collapse Status: Acute (2) ESRD on dialysis: Code(s): N18.6 - End stage renal disease; Z99.2 - Dependence on renal dialysis Status: Acute (3) JUDITH on CPAP: Code(s): G47.33 - Obstructive sleep apnea (adult) (pediatric); Z99.89 - Dependence on other enabling machines and devices Status: Acute (4) A-fib: Qualifiers: Atrial fibrillation type: unspecified Qualified Code(s): I48.91 - Unspecified atrial fibrillation Code(s): I48.91 - Unspecified atrial fibrillation Status: Acute (5) Elevated troponin: Code(s): R79.89 - Other specified abnormal findings of blood chemistry Status: Acute DS: Summary Hospital Course Hospital Course: The patient is a 72-year-old male with a past medical history significant for end-stage renal disease on hemodialysis, atrial fibrillation with Watchman device, hypertension, hyperlipidemia, degenerative disc disease, obstructive sleep apnea on CPAP, and recent little toe amputation. He presents to the ER with seizure-like activity and hallucinations of wolves during dialysis, which he does not recall. Initial blood pressure was very low but has since normalized with IV fluids. He is admitted for observation. Chest x-ray indicates congestive heart failure and pulmonary edema. He has a history of sternotomy and cardiac valve replacements. Laboratory findings include troponin of 0.044 and hemoglobin of 8.5. EKG shows ventricular pacing without specific ST-T changes. CT head reveals no acute intracranial process but age-related changes with mild to moderate diffuse volume loss and mild to moderate scattered white matter hyperintensities consistent with chronic ischemic disease. Altered mental status noted more hypersomnolence present syncopal episode. Intermittent hypotension during hemodialysis receiving med RN. Neck he was also on gabapentin which was recently increased which could peak gabapentin dose was lowered during the hospital stay. This could also be dialysis disequilibrium syndrome are intra dialect take hemodynamic state instability. CT head was negative. He was also currently undergoing IV antibiotics treatment for MSSA bacteremia. Blood culture were obtained during the hospital admission which remained negative. His blood pressure normalized and his mental status also improved and back to his baseline. Cardiology followed during the hospital stay along with Nephrology for inpatient M*Modal ESRD on HD?probably related to elevated troponin patient has history of elevated troponin, cardiology consulted suspected related to renal failure Coronary artery disease status post CABG 0 11/30 Bioprosthetic aortic valve replacement Recently diagnosed mSSA bacteremia.? Id recommendations were cefazolin 2 g/2 g/3 g 07/21 to 09/01 with hemodialysis metronidazole p.o. 07/15 -08/26 and Bactrim 07/15 to 08/26 1 double strength once daily. Shows continued during the hospital stay End-stage renal disease on hemodialysis JUDITH on CPAP history of atrial fibrillation status post Watchman ?vTE Prophylaxis:? Apixaban DIET:? Renal diet Code Status:? Full code Time Spent with Patient Time attestation: Total time spent providing and/or coordinating discharge services: 40 minutes Exam Narrative: GENERAL: Well-appearing, well-nourished, and in no acute distress. HEAD: Normocephalic, atraumatic. ENT: Mucous membranes moist. NECK: Supple. CHEST: Clear to auscultation. No respiratory distress. HEART: Irregular irregular rate and rhythm. Normal peripheral pulses. ABDOMEN: Soft, nontender, nondistended. EXTREMITIES: Normal range of motion. No edema. SKIN: Warm, dry, no rash. Left foot to amputation ulceration left eldridge and left great toe noted NEURO: Alert and oriented x3. PSYCH: Nor
[2023-08-25 13:42] LABS: SARS-CoV-2 RNA PCR Negative (Negative)
[2023-08-25 14:11] LABS: Hepatitis B Core Ab Total Nonreactive (Nonreactive)
[2023-08-25] MEDS: ceFAZolin 2 GM/D5W 50 ML 2 GM/50 ML BAG IVPB (14:42)
--- NOTE | 2023-08-25 15:05 | PCPTNOTE ---
Attempted to see patient for PT, however patient declined due to anticipated discharge this date.
[2023-08-25] MEDS: HYDROcodone/acetaminophen (*CRX) 5-325 MG TABLET 1 TAB PO (15:14)
[2023-08-25] MEDS: CYCLOBENZAPRINE HCL 5 MG TABLET PO (15:50)
== END 2023-08-25 17:00 | DRG 640 ==
LOC: ANHED 12:51 → ANHIMU 15:09 → ANH3MED 08-22 15:43 → ANH2MED 08-24 21:23
PROVIDERS: Internal Medicine Nephrology; Nurse Practitioner; Admitting Provider Internal Medicine; Emergency Provider Emergency Medicine; PCP Family Medicine; Visit Provider Internal Medicine
DX: E87.8 Other disorders of electrolyte and fluid balance, not elsewhere classified (principal); N18.6 End stage renal disease; I48.20 Chronic atrial fibrillation, unspecified; R78.81 Bacteremia; I12.0 Hypertensive chronic kidney disease with stage 5 chronic kidney disease or end stage renal disease; I24.89 Other forms of acute ischemic heart disease; I95.3 Hypotension of hemodialysis; I25.10 Atherosclerotic heart disease of native coronary artery without angina pectoris; D63.1 Anemia in chronic kidney disease; E78.5 Hyperlipidemia, unspecified; N25.0 Renal osteodystrophy; B95.61 Methicillin susceptible Staphylococcus aureus infection as the cause of diseases classified elsewhere; T50.995A Adverse effect of other drugs, medicaments and biological substances, initial encounter; M19.90 Unspecified osteoarthritis, unspecified site; G47.10 Hypersomnia, unspecified; G47.33 Obstructive sleep apnea (adult) (pediatric); F32.A Depression, unspecified; F41.9 Anxiety disorder, unspecified; Z95.0 Presence of cardiac pacemaker; Z11.52 Encounter for screening for COVID-19; Z99.2 Dependence on renal dialysis; Z95.2 Presence of prosthetic heart valve; Z89.421 Acquired absence of other right toe(s); Z79.899 Other long term (current) drug therapy; Z79.01 Long term (current) use of anticoagulants; Z86.010 Personal history of colon polyps; Z79.82 Long term (current) use of aspirin; Z95.1 Presence of aortocoronary bypass graft
CPT/HCPCS: 36415; 70450; 71045; 80053; 84100; 84484; 85025; 85055; 85610; 85730; 86704; 86706; 87040; 87340; 87635; 93005; 93306; 96374; 97110; 97161; 97165; 97530; 97535; 99285; A9270; G0257; G0378; J0690; J1644; J7030; Q5105

== ENCOUNTER 2023-10-19 17:34 | Emergency (ER) | payer MEDICARE, SELFPAY ==
--- NOTE | ~2023-10-19 | US_ITS ---
EXAMINATION: US venous doppler [facility] DATE: 10/19/2023 19:49 INDICATION: rule out DVT . TECHNIQUE: Grayscale images without and with compression and Doppler images of the bilateral lower ex tremity veins were obtained. COMPARISON: None FINDINGS: The right common femoral vein, profunda (deep) femoral vein, femoral vein, popliteal vein, peroneal v ein, posterior tibial veins, gastrocnemius vein, and greater saphenous vein are patent. The left common femoral vein, profunda (deep) femoral vein, femoral vein, popliteal vein, peroneal v ein, posterior tibial veins, gastrocnemius vein, and greater saphenous vein are patent. IMPRESSION: Patent bilateral lower extremity veins. No evidence of deep venous thrombosis. Reviewed, dictated and finalized at location K.
--- NOTE | ~2023-10-19 | CT_ITS ---
EXAMINATION: CTA chest PE protocol DATE: 10/19/2023 19:26 INDICATION: rule out PE TECHNIQUE: Computed tomography angiography (CTA) of the chest was performed with 100 mL Omnipaque-350 intravenous contrast timed to evaluate the pulmonary arteries. Coronal maximum intensity projection 3D-reconstructions were created by the technologist. The dose-length product (DLP) was 507.77 mGy-cm. Automated exposure control and iterative reconstruction technique were employed. COMPARISON: None. FINDINGS: Lung parenchyma and airways: Bilateral dependent scar/atelectasis. Pleura: Small bilateral fluid collections, larger on the right. Right pleural collection is simple. T he left pleural fluid collection has peripheral enhancement. Thoracic inlet, axillae and chest wall: Intact sternotomy wires. Bilateral symmetric gynecomastia. Di ffuse body wall edema. Thoracic aorta: No significant dilation. No dissection. Mediastinum: Normal. Heart and pericardium: Aortic valve replacement. Atrial occlusion device. Loop recorder. Cardiomegaly . Coronary artery calcifications: Heavy. Upper abdomen: No significant finding. Bones: No acute osseous finding. Pulmonary arteries: Study quality: Adequate. No pulmonary emboli detected. IMPRESSION: No CT evidence of acute pulmonary embolus. Small bilateral pleural fluid collections, larger on the right. Left pleural fluid collection demonstrates peripheral enhancement, as can be seen with empyema. Diffuse body wall edema. Reviewed, dictated and finalized at location K. IMPRESSION: No CT evidence of acute pulmonary embolus. Small bilateral pleural fluid collections, larger on the right. Left pleural fluid collection demonstrates peripheral enhancement, as can be se en with empyema. Diffuse body wall edema.
[2023-10-19 17:34] VITALS: BP 126/73; PULSE 64; RESP 20; TEMP 36.3; O2SAT 100
[2023-10-19 17:41] VITALS: RESP 17; O2SAT 100
--- NOTE | 2023-10-19 17:43 | ECG_ITS ---
Measurements Intervals [place] Rate: 63 P: [place]: 0 QRS: 111 QRSD: 98 T: -63 QT: 407 QTc: 419 Interpretive Statements ATRIAL FIBRILLATION ELECTRONIC VENTRICULAR PACEMAKER COMPLEX LOW VOLTAGE- DIFFUSE LEADS ANTEROSEPTAL INFARCT, AGE INDETERMINATE INFERIOR INFARCT, AGE INDETERMINATE BASELINE ARTIFACT- I, II, AVR, AVL, AVF, V1-V2 ABNORMAL ECG COMPARED TO ECG 08/20/2023 09:18:05 ATRIAL FIBRILLATION NOW PRESENT Electronically Signed On 10-19-2023 20:06:12 CDT by Jude Tsang D.O.
[2023-10-19 17:59] LABS: Basophils Percent Auto 0.7 % (0.2-1.2); Eosinophils Absolute Auto 0.2 K/mm3 (0-0.3); Hematocrit 29.4 % (42.0-52.0); Hemoglobin 8.9 g/dL (14.0-18.0); Immature Granulocyte Absolute 0.04 K/mm3 (0.00-0.031); Immature Granulocyte Percent A 0.7 % (0-0.5); Lymphocytes Absolute Auto 0.89 K/mm3 (0.9-3.2); Lymphocytes Percent Auto 15.5 % (18.3-44.2); Mean Corpuscular HGB Conc 30.3 g/dl (32-36); Mean Corpuscular Hemoglobin 32.6 pg (26-34); Mean Corpuscular Volume 107.7 fl (80-100); Monocytes Absolute Auto 0.9 K/mm3 (0.1-0.6); Monocytes Percent Auto 14.8 % (2.6-8.5); Neutrophils Absolute Auto 3.7 K/mm3 (1.3-6.7); Neutrophils Percent Auto 65.3 % (45.5-73.1); Platelet Count Result 274 k/mm3 (150-375); Red Blood Count 2.73 M/mm3 (4.6-6.20); Red Cell Distribution Width 15.6 % (11.5-14.5); White Blood Count 5.7 K/mm3 (4.5-10.0)
[2023-10-19 18:09] LABS: INR 1.2; Prothrombin Time 15.9 Seconds (11.1-14.7)
[2023-10-19 18:10] LABS: Partial Thromboplastin Time 39.2 SECONDS (22.3-36.8)
[2023-10-19 18:13] LABS: Anion Gap 19 mmol/L (8-16); Blood Urea Nitrogen 33 mg/dL (9-20); Calcium 10.2 mg/dL (8.4-10.2); Carbon Dioxide 23 mmol/L (22-30); Chloride 91 mmol/L (98-107); Estimated CRCL calculation 15 ml/min; Estimated Glomerular Filt Rate 15; Glucose 71 mg/dL (65-110); Potassium 4.3 mmol/L (3.4-5.0); Sodium 133 mmol/L (137-145)
--- NOTE | 2023-10-19 18:15 | ED.GENADULT ---
HPI - General Adult General Chief complaint: Unspecified <Chiki Lee PA-C - Last Filed: 10/20/23 01:14> Stated complaint: r/o blood clots, increased d-dimer <Chiki Lee PA-C - Last Filed: 10/20/23 01:14> Time Seen by Provider: 10/19/23 17:51 <Chiki Lee PA-C - Last Filed: 10/20/23 01:14> Source: patient <Chiki Lee PA-C - Last Filed: 10/20/23 01:14> Mode of arrival: ambulatory <CAROL Humphreys Last Filed: 10/20/23 01:14> Limitations: no limitations <Chiki Lee PA-C - Last Filed: 10/20/23 01:14> History of Present Illness HPI narrative: This is a 73-year-old male with PMH of ESRD on dialysis, AFib, CAD, s/p ventricular pacemaker who presents to the ED via EMS from [place] with chief complaint of elevated D-dimer drawn. Patient reports that he had right toe amputation surgery a couple weeks ago. He is on Plavix but no anticoagulant. Reports he did have some swelling to the lower legs but this has been improving. He is unsure exactly why they silvia the D-dimer. Recent COVID-19 diagnosis so he does feel little short of breath upon exertion. Denies chest pain or significant dyspnea. Denies fevers, chills. Currently asymptomatic during history taking. Patient's spouse is here and reports that the group home told them that the D-dimer was greater than 4. <Chiki Lee PA-C - Last Filed: 10/20/23 01:14> Related Data Home medications: Home Medications Medication Instructions Recorded Confirmed aspirin 81 mg tablet,delayed 81 mg PO DAILY 08/20/23 08/20/23 release clopidogrel 75 mg tablet 75 mg PO DAILY 08/20/23 08/20/23 cyclobenzaprine 5 mg tablet 5 mg PO PRN muscle spasm 08/20/23 08/20/23 escitalopram oxalate 20 mg tablet 20 mg PO DAILY 08/20/23 08/20/23 gabapentin 100 mg capsule 100 mg PO TID 08/20/23 08/20/23 levothyroxine 50 mcg tablet 50 mcg PO DAILY 08/20/23 08/20/23 midodrine 5 mg tablet 5 mg PO TID PRN Hypotension 08/20/23 08/20/23 rosuvastatin 10 mg tablet (Crestor) 5 mg PO DAILY 08/20/23 08/20/23 silver sulfadiazine 1 % topical 1 applic topical DAILY 08/20/23 08/20/23 cream tuberculin PPD 5 tub. unit/0.1 mL 5 tb unit intradermal WEEKLY 08/20/23 08/20/23 intradermal injection solution (Tubersol) <Chiki Lee PA-C - Last Filed: 10/20/23 01:14> Allergies/adverse reactions: Allergies Allergy/AdvReac Type Severity Reaction Status Date / Time [id number] Reductase Allergy Mild Unknown Verified 08/20/23 09:43 Inhibitor <Chiki Lee PA-C - Last Filed: 10/20/23 01:14> Review of Systems Review of Systems: All systems as dictated in HPI <Chiki Lee PA-C - Last Filed: 10/20/23 01:14> [facility] Past Medical History Medical History: Medical History (Updated 10/20/23 @ 00:01 by Jonelle Campoverde) A-fib Abnormal thyroid function test Anxiety with depression ASHD (arteriosclerotic heart disease) Benign essential hypertension BMI 33.0-33.9,adult BMI 35.0-35.9,adult CTS (carpal tunnel syndrome) DJD (degenerative joint disease) TERRAZAS (dyspnea on exertion) Dysuria Encounter for routine adult health examination with abnormal findings Encounter for routine adult health examination without abnormal findings Encounter for special screening examination for neoplasm of prostate Erectile dysfunction ESRD (end stage renal disease) Generalized weakness Hx of colonic polyps Hx of melanoma of skin Hyperlipidemia Hypersomnolence Impacted cerumen of left ear Lack of appetite On prison drug therapy JUDITH (obstructive sleep apnea) JUDITH on CPAP Retroperitoneal bleed <Chiki Lee PA-C - Last Filed: 10/20/23 01:14> Family History Family History: Family History Father Cerebrovascular accident Mother Diabetes mellitus Family history of lung cancer <Chiki Lee PA-C - Last Filed: 10/20/23 01:14> Social History Social History:
[2023-10-19 18:25] LABS: Platelet Estimate Adequate (Adequate)
[2023-10-19 18:26] LABS: Anisocytosis 2+ (NORMAL); Hypochromasia 1+ (NORMAL); Macrocytosis 1+ (NORMAL); Schistocytes None Seen (NORMAL)
--- NOTE | 2023-10-19 18:48 | PC.NURSE ---
JIM Sheppard at [facility] called to update on patient condition.
[2023-10-19 19:47] VITALS: PULSE 61
[2023-10-19 19:48] VITALS: BP 112/73; PULSE 62; RESP 18; TEMP 37.1; O2SAT 93
== END 2023-10-19 20:42 ==
PROVIDERS: Emergency Provider Physician Assistant; PCP Family Medicine
DX: U07.1 COVID-19 (principal); J90 Pleural effusion, not elsewhere classified; I12.0 Hypertensive chronic kidney disease with stage 5 chronic kidney disease or end stage renal disease; N18.6 End stage renal disease; Z99.2 Dependence on renal dialysis; I48.91 Unspecified atrial fibrillation; I25.10 Atherosclerotic heart disease of native coronary artery without angina pectoris; E78.5 Hyperlipidemia, unspecified; G47.33 Obstructive sleep apnea (adult) (pediatric); Z95.0 Presence of cardiac pacemaker; Z86.010 Personal history of colon polyps; Z85.820 Personal history of malignant melanoma of skin; Z87.891 Personal history of nicotine dependence; Z89.421 Acquired absence of other right toe(s); Z79.02 Long term (current) use of antithrombotics/antiplatelets; R94.31 Abnormal electrocardiogram [ECG] [EKG]
CPT/HCPCS: 36415; 71275; 80048; 85025; 85610; 85730; 93005; 93970; 99284; Q9967

== ENCOUNTER 2023-11-23 17:34 | Emergency (ER) | payer MEDICARE, SELFPAY ==
--- NOTE | ~2023-11-23 | CT_ITS ---
EXAMINATION: CT brain wo con DATE: 11/23/2023 18:29 INDICATION: Fall. TECHNIQUE: Computed tomography (CT) of the head was performed without intravenous contrast. The mA wa s adjusted according to patient size. Iterative reconstruction technique was employed. The dose-lengt h product was 756.67 mGy-cm. COMPARISON: Head CT 08/20/2023 FINDINGS: There are scattered areas of low attenuation in the cerebral white matter. There is no intr acranial hemorrhage, acute infarction, or abnormal intracranial mass lesion. The ventricles are deeap l in size. The orbits are normal. The mastoid air cells are normal. There is a 3.1 cm expansile lytic lesion associated with the crown of an unerupted right maxillary molar, consistent with a dentigerou s cyst. There is mild mucosal thickening in the paranasal sinuses. IMPRESSION: 1. Stable mild nonspecific cerebral white matter disease, which likely represents chronic small vesse l ischemic disease. Reviewed, dictated and finalized at location E. IMPRESSION: 1. Stable mild nonspecific cerebral white matter disease, which likely represen ts chronic small vessel ischemic disease.
--- NOTE | ~2023-11-23 | CT_ITS ---
EXAMINATION: CT cervical spine wo con DATE: 11/23/2023 18:30 INDICATION: Head injury. Fall. TECHNIQUE: Computed tomography (CT) of the cervical spine was performed without intravenous contrast. Automated exposure control and iterative reconstruction technique were employed. The dose-length pro duct was 756.67 mGy-cm. COMPARISON: None FINDINGS: There is 4 degrees dextrocurvature of cervical spine. There is 2 mm retrolisthesis of C3 on C4. There is kyphosis of lower cervical spine. There is mildly decreased disc height at C2-C3, sever isa decreased disc height at C3-C4, moderately decreased disc height at C4-C5, and severely decreased disc height from C5-C6 through C7-T1. There is interbody fusion at C7-T1. The following disc levels are specifically discussed: C2-C3: There is moderate right and mild left uncovertebral joint osteoarthritis. There is severe bila teral facet joint osteoarthritis. There is mild bilateral neural foraminal stenosis. There is mild ce ntral canal stenosis. C3-C4: There is severe bilateral uncovertebral joint osteoarthritis. There is severe bilateral facet joint osteoarthritis. There is mild right and moderate left neural foraminal stenosis. There is mild central canal stenosis. C4-C5: There is severe bilateral uncovertebral joint osteoarthritis. There is mild right and severe l eft facet joint osteoarthritis. There is mild right and moderate left neural foraminal stenosis. Ther e is mild central canal stenosis. C5-C6: There is severe bilateral uncovertebral joint osteoarthritis. There is moderate bilateral face t joint osteoarthritis. There is mild bilateral neural foraminal stenosis. There is mild central sandie l stenosis. C6-C7: There is severe bilateral uncovertebral joint osteoarthritis. There is severe bilateral facet joint osteoarthritis. There is mild bilateral neural foraminal stenosis. There is mild central canal stenosis. C7-T1: There is moderate bilateral uncovertebral joint hypertrophy. There is severe bilateral facet j oint osteoarthritis. There is mild bilateral neural foraminal stenosis. There is mild central canal s tenosis. IMPRESSION: 1. No fracture. 2. Severe cervical spondylosis. Reviewed, dictated and finalized at location E.
[2023-11-23 17:35] VITALS: BP 91/62; PULSE 67; RESP 18; TEMP 36.8; O2SAT 100
--- NOTE | 2023-11-23 18:58 | ED.FALL ---
HPI - Fall General Chief Complaint: Fall Stated Complaint: fall Time Seen by Provider: 11/23/23 18:41 History of Present Illness HPI Narrative: Patient is a 73-year-old male with history of ESRD on hemodialysis, pacemaker in place, Watchman in place, CABG 1 year ago here after a fall. He states that he was using his wheelchair as a walker and was slowly going through an electric doorway when the door started to close, his backside and force him to fall to the floor. He states he hit the back of his head, no loss of consciousness. He is on blood thinners. No prodromal chest pain, shortness of breath, lightheadedness. He notes he was initially having some back pain, feels similar to his prior back pain that he has had in the past, prior lumbar surgery history. He is due for hemodialysis tomorrow. Tetanus UTD. Related Data Home Medications Medication Instructions Recorded Confirmed aspirin 81 mg tablet,delayed 81 mg PO DAILY 08/20/23 08/20/23 release clopidogrel 75 mg tablet 75 mg PO DAILY 08/20/23 08/20/23 cyclobenzaprine 5 mg tablet 5 mg PO PRN muscle spasm 08/20/23 08/20/23 escitalopram oxalate 20 mg tablet 20 mg PO DAILY 08/20/23 08/20/23 gabapentin 100 mg capsule 100 mg PO TID 08/20/23 08/20/23 levothyroxine 50 mcg tablet 50 mcg PO DAILY 08/20/23 08/20/23 midodrine 5 mg tablet 5 mg PO TID PRN Hypotension 08/20/23 08/20/23 rosuvastatin 10 mg tablet (Crestor) 5 mg PO DAILY 08/20/23 08/20/23 silver sulfadiazine 1 % topical 1 applic topical DAILY 08/20/23 08/20/23 cream tuberculin PPD 5 tub. unit/0.1 mL 5 tb unit intradermal WEEKLY 08/20/23 08/20/23 intradermal injection solution (Tubersol) Allergies Allergy/AdvReac Type Severity Reaction Status Date / Time Akqtvmz-LOP-GgW Reductase Allergy Mild Unknown Verified 11/23/23 17:42 Inhibitor Review of Systems Review of Systems: All systems reviewed & are unremarkable except as noted in HPI and below PMFSH Past Medical History Medical History (Updated 11/23/23 @ 19:18 by Mindi Ivy MD) A-fib Abnormal thyroid function test Anxiety with depression ASHD (arteriosclerotic heart disease) Benign essential hypertension BMI 33.0-33.9,adult BMI 35.0-35.9,adult Chronic pain CTS (carpal tunnel syndrome) DJD (degenerative joint disease) TERRAZAS (dyspnea on exertion) Dysuria Encounter for routine adult health examination with abnormal findings Encounter for routine adult health examination without abnormal findings Encounter for special screening examination for neoplasm of prostate Erectile dysfunction ESRD (end stage renal disease) Generalized weakness Hx of colonic polyps Hx of melanoma of skin Hyperlipidemia Hypersomnolence Impacted cerumen of left ear Lack of appetite 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 JUDITH (obstructive sleep apnea) JUDITH on CPAP Retroperitoneal bleed Family History Family History Father Cerebrovascular accident Mother Diabetes mellitus Family history of lung cancer Social History Social History Smoking status: Former smoker Smokeless tobacco user: chewing tobacco Alcohol intake: current Drinks per week: 2 Substance use: never Do You Feel Safe in your Home?: Yes Lack of Transportation: No Lack of Food: Never True Current Housing: I Have Housing Concerned About Future Housing: No Difficulty Paying Gas/Electric Bills: No Difficulty Paying for Meds: No Currently Unemployed: No Education: Master's Degree or Higher Difficulty w/ Childcare or Family Care: No Spiritual care concerns: No Exam Narrative: GENERAL: Well-appearing, well-nourished, and in no acute distress. HEAD: Normocephalic, superficial 1 cm laceration present over the posterior occiput with underlying 2cm hematoma. Bleeding controlled, non gaping wound. EYES: PERRLA and EOMI. ENT: Nares clear. Mucous membranes moist. NECK: Supple.
[2023-11-23] MEDS: ACETAMINOPHEN 500 MG TABLET 1000 MG PO (19:06)
[2023-11-23 19:07] VITALS: BP 115/76; PULSE 67; RESP 15; O2SAT 100
[2023-11-23 19:43] VITALS: BP 111/72; PULSE 60; RESP 15; O2SAT 100
== END 2023-11-23 19:45 | disposition home or self-care (01) ==
PROVIDERS: Emergency Provider Student in an Organized Health Care Education/Training Program; PCP Family Medicine
DX: S01.01XA Laceration without foreign body of scalp, initial encounter (principal); I48.91 Unspecified atrial fibrillation; F41.8 Other specified anxiety disorders; I25.10 Atherosclerotic heart disease of native coronary artery without angina pectoris; I12.0 Hypertensive chronic kidney disease with stage 5 chronic kidney disease or end stage renal disease; N18.6 End stage renal disease; Z99.2 Dependence on renal dialysis; G47.33 Obstructive sleep apnea (adult) (pediatric); Z95.1 Presence of aortocoronary bypass graft; Z95.0 Presence of cardiac pacemaker; Z85.820 Personal history of malignant melanoma of skin; Z86.010 Personal history of colon polyps; Z79.02 Long term (current) use of antithrombotics/antiplatelets; Z79.82 Long term (current) use of aspirin; M47.812 Spondylosis without myelopathy or radiculopathy, cervical region; W18.09XA Striking against other object with subsequent fall, initial encounter
CPT/HCPCS: 70450; 72125; 99284; A9270

== ENCOUNTER 2023-12-21 15:08 | Emergency (ER) | payer MEDICARE, SELFPAY ==
--- NOTE | ~2023-12-21 | CT_ITS ---
EXAMINATION: CT brain wo con DATE: 12/21/2023 15:29 INDICATION: fall, hi, lac above R eyebrow . TECHNIQUE: Computed tomography (CT) of the head was performed without intravenous contrast. The mA wa s adjusted according to patient size. Iterative reconstruction technique was employed. The dose-lengt h product was 681.00 mGy-cm. COMPARISON: 11/23/2023. FINDINGS: No acute intracranial hemorrhage or extra-axial fluid collection. No hydrocephalus, mass, or herniation. No acute ischemic infarct. Unremarkable dural venous sinus attenuation. No acute osseous abnormality. Small left maxillary retention cyst/polyp, the remaining aerated spaces are clear. Mild atrophy and chronic white matter change. Atherosclerotic intracranial calcification. 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 IMPRESSION: No acute intracranial process. Reviewed, dictated and finalized at location K.
--- NOTE | ~2023-12-21 | CT_ITS ---
EXAMINATION: CT cervical spine wo con DATE: 12/21/2023 15:29 INDICATION: fall, hi TECHNIQUE: Computed tomography (CT) of the cervical spine was performed without intravenous contrast. Automated exposure control and iterative reconstruction technique were employed. The dose-length pro duct was 264.75 mGy-cm. COMPARISON: 11/23/2023. FINDINGS: Vertebral Body Alignment: Reversed lordosis centered at C5-6. Stable mild listheses at multiple level s, likely on a degenerative basis. Craniocervical and atlantoaxial alignment: Moderate degenerative change. Alignment intact. Osseous structures/fracture: No evidence of a lytic or blastic process in the visualized spine. No e vidence of acute fracture. Interbody fusion at C7-T1. Cervical soft tissues: The paraspinal soft tissues planes are maintained. Degenerative changes: Multilevel severe degenerative disc disease and facet arthropathy. Severe left neural foraminal narrowing at C3-4 and C4-5 secondary to degenerative disc, uncovertebral joint, and facet change. IMPRESSION: No acute fracture or traumatic malalignment in the cervical spine. Reviewed, dictated and finalized at location K.
[2023-12-21 15:14] VITALS: BP 127/84; PULSE 87; RESP 14; TEMP 36.4; O2SAT 100
--- NOTE | 2023-12-21 15:17 | ED.FALL ---
HPI - Fall General Chief Complaint: Fall <CAROL Mcdowell Last Filed: 12/21/23 15:20> Stated Complaint: fall <CAROL Mcdowell Last Filed: 12/21/23 15:20> Time Seen by Provider: 12/21/23 15:10 <CAROL Mcdowell Last Filed: 12/21/23 15:20> Focused HPI: Patient is a 73 y/o male who presents to the ED via EMS with report of a fall. Patient was [place] the movie theater today and tripped over his post-op shoe in the dark and fell forward, hitting his head on the ground. Denies LOC. Sustained an abrasion over his R eyebrow, skin tears to his R upper and lower arm. Tetanus UTD. Patient is typically on plavix, has been off of it for past 1 week d/t upcoming vascular surgery on his RLE on Thursday @ [facility]. GENERAL: Well-appearing, well-nourished, and in no acute distress. HEAD: Normocephalic. Contusion to R eyebrow. 1cm laceration over R eyebrow, no active bleeding. Small abrasion over bridge of nose. EYES: PERRL/EOMI, conjunctiva clear. NECK: No midline spinal tenderness. No palpable deformities/bony stepoffs. CHEST: Clear to auscultation. ?No respiratory distress. HEART: Regular rate and rhythm.? MSK: Scattered skin tears to R upper arm, forearm, R 2nd mcp joint. NEURO: ?Alert and oriented x3. Patient screened in triage and initial orders placed.? ?Additional care and disposition to be based upon?diagnostic testing and treatment. <CAROL Mcdowell Last Filed: 12/21/23 15:20> Source: patient <CAROL Mcdowell Last Filed: 12/21/23 15:20> Mode of arrival: EMS <CAROL Mcdowell Last Filed: 12/21/23 15:20> Limitations: no limitations <CAROL Mcdowell Last Filed: 12/21/23 15:20> History of Present Illness HPI Narrative: Agree with HPI. <Billy Fairchild MD - Last Filed: 12/21/23 16:45> Related Data Home Medications: Home Medications Medication Instructions Recorded Confirmed aspirin 81 mg tablet,delayed 81 mg PO DAILY 08/20/23 08/20/23 release clopidogrel 75 mg tablet 75 mg PO DAILY 08/20/23 08/20/23 cyclobenzaprine 5 mg tablet 5 mg PO PRN muscle spasm 08/20/23 08/20/23 escitalopram oxalate 20 mg tablet 20 mg PO DAILY 08/20/23 08/20/23 gabapentin 100 mg capsule 100 mg PO TID 08/20/23 08/20/23 levothyroxine 50 mcg tablet 50 mcg PO DAILY 08/20/23 08/20/23 midodrine 5 mg tablet 5 mg PO TID PRN Hypotension 08/20/23 08/20/23 rosuvastatin 10 mg tablet (Crestor) 5 mg PO DAILY 08/20/23 08/20/23 silver sulfadiazine 1 % topical 1 applic topical DAILY 08/20/23 08/20/23 cream tuberculin PPD 5 tub. unit/0.1 mL 5 tb unit intradermal WEEKLY 08/20/23 08/20/23 intradermal injection solution (Tubersol) <Deidra Alcantar PA-C - Last Filed: 12/21/23 15:20> Allergies/Adverse Reactions: Allergies Allergy/AdvReac Type Severity Reaction Status Date / Time Elnoyis-JKN-BiC Reductase Allergy Mild Unknown Verified 11/23/23 17:42 Inhibitor <Deidra Alcantar PA-C - Last Filed: 12/21/23 15:20> Review of Systems Review of Systems: All systems reviewed & are unremarkable except as noted in HPI and below <Billy Fairchild MD - Last Filed: 12/21/23 16:45> Constitutional: Constitutional: Reports no additional constitutional complaints <Billy Fairchild MD - Last Filed: 12/21/23 16:45> ENT: Reports system reviewed and no additional complaints, except as documented <Billy Fairchild MD - Last Filed: 12/21/23 16:45> Cardiovascular: Cardiovascular: Reports no additional cardiovascular complaints <Billy Fairchild MD - Last Filed: 12/21/23 16:45> Respiratory: Respiratory: Reports no additional respiratory complaints <Billy Fairchild MD - Last Filed: 12/21/23 16:45> Musculoskeletal: Musculoskeletal: Reports no additional musculoskeletal complaints <Billy Fairchild MD - Last Filed: 12/21/23 16:45> Integumentary/Breasts: Skin/Breast: Denies erythema and Denies rash <Billy
== END 2023-12-21 19:34 | disposition home or self-care (01) ==
PROVIDERS: Emergency Provider Emergency Medicine; PCP Family Medicine
DX: S01.111A Laceration without foreign body of right eyelid and periocular area, initial encounter (principal); S61.411A Laceration without foreign body of right hand, initial encounter; S61.511A Laceration without foreign body of right wrist, initial encounter; S41.111A Laceration without foreign body of right upper arm, initial encounter; I48.91 Unspecified atrial fibrillation; I25.10 Atherosclerotic heart disease of native coronary artery without angina pectoris; I12.0 Hypertensive chronic kidney disease with stage 5 chronic kidney disease or end stage renal disease; N18.6 End stage renal disease; E78.5 Hyperlipidemia, unspecified; G47.33 Obstructive sleep apnea (adult) (pediatric); F41.8 Other specified anxiety disorders; Z86.010 Personal history of colon polyps; Z85.820 Personal history of malignant melanoma of skin; Z87.891 Personal history of nicotine dependence; Z79.82 Long term (current) use of aspirin; W18.09XA Striking against other object with subsequent fall, initial encounter
CPT/HCPCS: 70450; 72125; 99284